=== PATIENT | female | born 1940 | race Caucasian/White ===

== ENCOUNTER → 2018-09-19 | Outpatient (CLI) | payer OTHER ==
--- NOTE | 2018-09-19 16:28 | KCIC ---
Bilateral digital screening mammograms with 3-D tomosynthesis: Reason for examination: Routine screening. Comparison is made to previous studies dated 11/05/2015 and 11/16/2014. Bilateral mammograms in CC and oblique projections were obtained with 2-D imaging and 3-D tomosynthesis imaging on a Siemens Inspiration unit and reviewed on the workstation. Interpretation was made with the benefit of CAD. The skin and nipples show no abnormalities. No abnormal axillary lymph nodes are seen. The breast parenchyma is heterogeneously dense. (Breast density: Category C.) There has been a decrease in size in the nodule at the 12:00 B position of the left breast. There continue to be multiple additional smaller nodules seen consistent with small cysts. There are no new dominant masses, suspicious calcifications or architectural distortion. Benign calcifications are present. Impression: No evidence of malignancy. Recommend routine screening. Your patient's mammogram demonstrates that she has dense breast tissue (breast density category C or D), which could hide abnormalities, and if she has other risk factors for breast cancer that have been identified, she might benefit from supplemental screening tests that may be suggested by you as her ordering physician. Dense breast tissue, in and of itself, is a relatively common condition. Therefore, this information is not provided to cause undue concern, but rather to raise your awareness and to promote discussion with your patient regarding the presence of other risk factors, in addition to dense breast tissue. Your patient's mammography results will be sent to her. BI-RAD Category 2: Benign. "Our facility is accredited by the [employer] Mammography Program." This patient's information has been entered into a reminder system for the patient to be notified with the results of her examination and a target date for the next mammogram. Electronically signed by: Tammi Faustin MD (09/19/2018 4:24 PM) [id number]
== END | disposition home or self-care (01) ==
LOC: KCIC MAMMO 14:39
PROVIDERS: ATTEND Internal Medicine
DX: Z12.31 Encounter for screening mammogram for malignant neoplasm of breast (principal)
CPT/HCPCS: 77063; 77067

== ENCOUNTER → 2019-12-21 | Outpatient (CLI) | payer MEDICARE ==
[2019-12-21 10:05] LABS: GFR 53.6
[2019-12-21] MEDS: IOHEXOL 240 MG/ML 50ML VIAL. PO ONE (10:56)
[2019-12-21] MEDS: IOHEXOL 300 MG/ML 100ML VIAL. IV ONE (10:56)
--- NOTE | 2019-12-21 11:57 | RAD ---
EXAM: CT Abdomen with IV contrast INDICATION: Ventral hernia TECHNIQUE: Multi-detector row CT images were acquired from the lung bases through the abdomen with the use of IV contrast. Sagittal and coronal images were acquired from the transaxial data. All CT scans performed at this facility utilize dose optimization techniques as appropriate to the exam, including the following: Automated exposure control and adjustment of the mA and/or KV according to patient size (this includes techniques or standardized protocols for targeted exams where dose is indication/reason for exam). IV CONTRAST: Administered ORAL CONTRAST: Administered COMPARISON: None FINDINGS: LOWER CHEST: Mild bibasilar atelectatic changes LIVER: Unremarkable BILIARY SYSTEM: Cholecystectomy. Bile ducts are not dilated. PANCREAS: Unremarkable SPLEEN: Unremarkable ADRENALS: 1 cm lateral limb right adrenal hypodense nodule compatible with an adenoma. Left adrenal gland is unremarkable. KIDNEYS & URETERS: Unremarkable GASTROINTESTINAL: There is mild wall thickening and pericolonic hyperemia involving the proximal ascending colon and the majority of the transverse colon. No evidence of bowel obstruction or perforation in the included field of view. The appendix is well-seen and may be absent. MESENTERY/PERITONEUM/RETROPERITONEUM: Unremarkable VASCULAR: Unremarkable LYMPH NODES: No adenopathy OSSEOUS & SOFT TISSUES: L3-L4 lumbar spinal degenerative spondylosis. No acute or aggressive osseous lesions. The soft tissues are unremarkable. IMPRESSION: Findings suggesting colitis of the ascending and transverse colon. No evidence of a ventral abdominal hernia in the included field of view. Electronically signed by: Sae Lee MD (12/21/2019 11:54 AM) [id number]
== END | disposition home or self-care (01) ==
LOC: CT 10:30
PROVIDERS: ATTEND Internal Medicine
DX: K43.9 Ventral hernia without obstruction or gangrene (principal); M47.816 Spondylosis without myelopathy or radiculopathy, lumbar region; Z90.49 Acquired absence of other specified parts of digestive tract
CPT/HCPCS: 36415; 74160; 82565; Q9966; Q9967

== ENCOUNTER 2020-09-21 16:33 | Inpatient (IN) | payer MEDICARE ==
[~2020-09-21] VITALS: Ht 154.9 cm; Wt 68.7 kg
[2020-09-21] MEDS ORDERED: IV NORMAL SALINE 1000ML BAG 1,000 ML IV ONE ×3 (17:00→19:30)
[2020-09-21 17:09] LABS: BASO # 0.1 x10^3/uL (0.0-0.2); BASO % 1 % (0-3); EOS # 0.1 x10^3/uL (0.0-0.7); EOS % 1 % (0-3); HEMATOCRIT 37.8 % (36.0-47.0); HEMOGLOBIN 12.4 g/dL (12.0-15.5); LYMPH # 0.8 x10^3/uL (1.0-4.8); LYMPH % 4 % (24-48); MEAN CORPUSCULAR HEMOGLOBIN 27 pg (25-35); MEAN CORPUSCULAR HGB CONC 33 g/dL (31-37); MEAN CORPUSCULAR VOLUME 83 fL (79-100); MONO # 0.2 x10^3/uL (0.0-1.1); MONO % 1 % (0-9); NEUT # 18.6 x10^3/uL (1.8-7.7); NEUT % 94 % (31-73); PLATELET COUNT 423 x10^3/uL (140-400); RED BLOOD COUNT 4.54 x10^6/uL (3.50-5.40); WHITE BLOOD COUNT 19.8 x10^3/uL (4.0-11.0)
[2020-09-21 17:33] LABS: % BANDS 8 % (0-9); % EOS 1 % (0-5); % LYMPHS 8 % (24-48); % MONOS 2 % (0-10); % SEGS 81 % (35-66); PLT ESTIMATE ADEQUATE (ADEQUATE)
[2020-09-21] MEDS ORDERED: PIP/TAZO PER PHARMACY MC PRN (18:00)
[2020-09-21] MEDS ORDERED: VANCOMYCIN PER PHARMACY MC PRN (18:00)
--- NOTE | 2020-09-21 18:10 | RAD ---
Exam performed: CT scan of the head and cervical spine without contrast. Date of Service: 09/20/2020 Comparison:None available Clinical History: Head injury Technique: Helical acquisitions are obtained from the foramen magnum to the vertex without intravenou s administration of contrast. In addition helical acquisitions are obtained through the cervical spin e. Sagittal and coronal reformatted images are obtained and reviewed. CT scan head findings: The ventricular system is midline without evidence of dilatation. There are mild areas of low-attenu ation in both periventricular and subcortical deep white matter perhaps representing small vessel isc hemic changes. Normal hernandez-white differentiation is maintained. There is no extra axial fluid collec tion, intraparenchymal hemorrhage or mass lesion. The visualized orbits, paranasal sinuses and the m astoid air cells are clear. The calvarium is intact. Impression: 1. No acute intracranial process detected. End Impression. CT cervical spine findings: Straightening of cervical curvature noted likely positional. Craniocervical and C1-2 articulation juan jose ears maintained. The vertebral body heights are maintained. There is narrowing of C5/6, C6/7 and C7/T 1 disc spaces, the remainder intravertebral disc spaces are maintained. Mild diffuse anterior osteoph ytes are seen in the lower cervical spine There is no elizabeth or retrolisthesis. No prevertebral soft tissue swelling is identified. There are no fractures. No definite lymphadenopathy or masses are s een within the neck. The visualized thyroid and salivary glands appears preserved. Impression: 1. No acute abnormality seen in the CT scan cervical spine. 2. Spondylotic changes and degenerative disc disease noted as outlined above. PQRS Compliance Statement: One or more of the following individualized dose reduction techniques were utilized for this examinat ion: 1. Automated exposure control 2. Adjustment of the mA and/or kV according to patient size 3. Use of iterative reconstruction technique End impression Exam performed: One view chest. Indication: Reason: HEAD INJURY / Spl. Instructions: / History: Date of Service: 09/21/2020 5:51 PM Comparison: None available. Single AP upright portable view chest findings: Study somewhat limited due to poor inspiratory effort Cardiomediastinal silhouette is within limits of normal. No acute infiltrates, effusion or pneumotho rax is detected. The bony structures are normal. Impression: No acute cardiopulmonary process is detected. Electronically signed by: Jessi Hurd MD (09/21/2020 6:08 PM) [facility]
[2020-09-21 18:16] LABS: CALCIUM 9.4 mg/dL (8.5-10.1); CREATININE 1.6 mg/dL (0.6-1.0); GFR 31.2; POTASSIUM 3.1 mmol/L (3.5-5.1)
[2020-09-21] MEDS ORDERED: VANCOMYCIN 1.5 GM in IV NORMAL SALINE 500ML BAG 500 ML IV ONE (18:30)
[2020-09-21 18:31] LABS: ALBUMIN 3.6 g/dL (3.4-5.0); MAGNESIUM 2.5 mg/dL (1.8-2.4); TOTAL BILIRUBIN 0.7 mg/dL (0.2-1.0); TOTAL PROTEIN 7.1 g/dL (6.4-8.2)
[2020-09-21] MEDS ORDERED: NOREPINEPHRINE VIAL 8 MG in IV DEXTROSE 5% 250 ML IV ONE (19:15)
--- NOTE | 2020-09-21 19:23 | PHYS DOC ---
Past Medical History Past Medical History: Hypertension, Other Additional Past Medical Histor: TREMORS Past Surgical History: Cholecystectomy, Hysterectomy Smoking Status: Never Smoker Alcohol Use: None General Adult EDM: Chief Complaint: MECHANICAL FALL HPI: HPI: 79-year-old female presented emergency department today after sustaining 2 falls today after feeling lightheaded. On EMS arrival the patient was hypotensive and tachycardic. She has been feeling generally bad for the past week or so with worsening fatigue and lightheadedness over the past 48 hours. She has had some what she reports is constipation which is generally abdominal pain without a focus. She has not had any fevers. She has had some nausea. She reports passing gas today and reports recently had a bowel movement in the last 24 hours. She denies a cough. She denies any rash. Review of systems is negative for chest pain shortness of breath cough. Negative for rash nuchal rigidity. Positive for fatigue lightheadedness. All other review of systems negative. ED course: 79-year-old female presenting with a fall lightheaded found to be hypotensive and tachycardic. IV fluids administered in the emergency de partment. Her blood pressure came up quite quickly to about 110 systolic. IV antibiotics ordered. CBC shows an elevated white blood cell count of 19.8. Hemoglobin 12.4. Chemistry panel shows a creatinine of 1.6. Potassium 3.1. Troponin mildly elevated at 0.07. Lactic acid 4.6. Magnesium 2.5. Concern for possible sepsis. Broad-spectrum antibiotics have been administered along with IV fluids. Head and neck CT negative. Chest x-ray shows no acute cardiothoracic process. Currently we are pending a CT of the abdomen pelvis and urinalysis which may reveal the source of infection. The patient was signed out to Dr. Garibay the oncoming ER doctor at approximately 7 PM. Plan is to follow- up on imaging and admit the patient to the intensive care unit. On my examination at about 715 the patient's blood pressure was a map in the 90s. She is alert and nontoxic during that examination without any changes. I did spoken to Dr. Zhong who evaluated the patient in the emergency department. He is working on getting us a bed in the hospital. We will hold off on bridge orders and getting the bed until all the labs and imaging is back. The patient was then signed out to Dr. Garibay. Heart Score: Risk Factors: Risk Factors: DM, Current or recent (<one month) smoker, HTN, HLP, family history of CAD, obesity. Risk Scores: Score 0 - 3: 2.5% MACE over next 6 weeks - Discharge Home Score 4 - 6: 20.3% MACE over next 6 weeks - Admit for Clinical Observation Score 7 - 10: 72.7% MACE over next 6 weeks - Early Invasive Strategies Current Medications: Current Medications Medications (Trade) Dose Ordered Sig/Daisy Start Time Stop Time Status Last Admin Dose Admin Norepinephrine Bitartrate 8 mg/ Dextrose 258 ml @ 12.191 mls/ hr 1X ONCE 09/21/20 19:15 09/22/20 16:24 Piperacillin Sod/ Tazobactam Sod (Zosyn Per Pharmacy) 1 each PRN DAILY PRN 09/21/20 18:00 Piperacillin Sod/ Tazobactam Sod 3.375 gm/Sodium Chloride 50 ml @ 100 mls/hr Q6HRS 09/21/20 18:00 Sodium Chloride 1,000 ml @ 1,000 mls/hr 1X ONCE 09/21/20 19:15 09/21/20 20:14 UNV Vancomycin HCl (Vanco Per Pharmacy) 1 each PRN DAILY PRN 09/21/20 18:00 Vancomycin HCl 1.5 gm/Sodium Chloride 500 ml @ 250 mls/hr 1X ONCE 09/21/20 18:30 09/21/20 20:29 Allergies: Allergies: Allergies Coded Allergies Type Severity Reaction Last Updated Verified No Known Drug Allergies 12/21/19 No Physical Exam: PE: Constitutional: Well developed, well nourished, no acute distress, non-toxic appearance. [] HENT: Normocephalic, atraumatic, bilateral external ears normal, oropharynx moist, no oral exudates, nose normal. [] Eyes: PERRLA, EOMI, conjunctiva normal, no discharge. [] Neck: Normal range of motion, no tenderness, supple, no stridor. [] Cardiovascular:Heart rate regular rhythm, no murmur [] Lungs & Thorax: Bilateral breath sounds clear to auscultation [] Abdomen: Bowel sounds normal, soft, no tenderness, no masses, no pulsatile masses. [] Skin: Warm, dry, no erythema, no rash. [] Back: No tenderness, no CVA tenderness. [] Extremities: No tenderness, no cyanosis, no clubbing, ROM intact, no edema. [] Neurologic: Alert and oriented X 3, normal motor function, normal sensory function, no focal deficits noted. [] Psychologic: Affect normal, judgement normal, mood normal. [] Current Patient Data: Labs: Laboratory Tests Test 09/21/20 16:47 09/21/20 17:59 White Blood Count 19.8 x10^3/uL (4.0-11.0) H Red Blood Count 4.54 x10^6/uL (3.50-5.40) Hemoglobin 12.4 g/dL (12.0-15.5) Hematocrit 37.8 % (36.0-47.0) Mean Corpuscular Volume 83 fL (79-100) Mean Corpuscular Hemoglobin 27 pg (25-35) Mean Corpuscular Hemoglobin Concent 33 g/dL (31-37) Red Cell Distribution Width 14.0 % (11.5-14.5) Platelet Count 423 x10^3/uL (140-400) H Neutrophils (%) (Auto) 94 % (31-73) H Lymphocytes (%) (Auto) 4 % (24-48) L Monocytes (%) (Auto) 1 % (0-9) Eosinophils (%) (Auto) 1 % (0-3) Basophils (%) (Auto) 1 % (0-3) Neutrophils # (Auto) 18.6 x10^3/uL (1.8-7.7) H Lymphocytes # (Auto) 0.8 x10^3/uL (1.0-4.8) L Monocytes # (Auto) 0.2 x10^3/uL (0.0-1.1) Eosinophils # (Auto) 0.1 x10^3/uL (0.0-0.7) Basophils # (Auto) 0.1 x10^3/uL (0.0-0.2) Segmented Neutrophils % 81 % (35-66) H Band Neutrophils % 8 % (0-9) Lymphocytes % 8 % (24-48) L Monocytes % 2 % (0-10) Eosinophils % 1 % (0-5) Platelet Estimate Adequate (ADEQUATE) Lactic Acid Level 4.6 mmol/L (0.4-2.0) *H Troponin I Quantitative 0.077 ng/mL (0.000-0.055) Sodium Level 138 mmol/L (136-145) Potassium Level 3.1 mmol/L (3.5-5.1) L Chloride Level 103 mmol/L (98-107) Carbon Dioxide Level 20 mmol/L (21-32) L Anion Gap 15 (6-14) H Blood Urea Nitrogen 15 mg/dL (7-20) Creatinine 1.6 mg/dL (0.6-1.0) H Estimated GFR (Cockcroft-Gault) 31.2 BUN/Creatinine Ratio 9 (6-20) Glucose Level 141 mg/dL (70-99) H Calcium Level 9.4 mg/dL (8.5-10.1) Magnesium Level 2.5 mg/dL (1.8-2.4) H Total Bilirubin 0.7 mg/dL (0.2-1.0) Aspartate Amino Transferase (AST) 23 U/L (15-37) Alanine Aminotransferase (ALT) 20 U/L (14-59) Alkaline Phosphatase 234 U/L (46-116) H KU-Ron-X-Type Natriuretic Peptide 185 pg/mL (0-449) Total Protein 7.1 g/dL (6.4-8.2) Albumin 3.6 g/dL (3.4-5.0) Albumin/Globulin Ratio 1.0 (1.0-1.7) Laboratory Tests 09/21/20 16:47 Laboratory Tests 09/21/20 17:59 Vital Signs: Vital Signs Date Time Temp Pulse Resp B/P (MAP) Pulse Ox O2 Delivery O2 Flow Rate FiO2 09/21/20 17:02 98.6 112 18 117/61 (79) 98 Room Air 98.6 EKG: EKG: [] Radiology/Procedures: Radiology/Procedures: [] Course & Med Decision Making: Course & Med Decision Making Pertinent Labs and Imaging studies reviewed. (See chart for details) [] Dragon Disclaimer: Sharonda Disclaimer: This electronic medical record was generated, in whole or in part, using a voice recognition dictation system. Departure Departure Impression: Primary Impression: Syncope Additional Impressions: Severe sepsis Hypovolemia Elevated white blood cell count Disposition: ADMITTED INPT THIS HOSP Admitting Physician: HIMS Condition: CRITICAL Referrals: JARED LEBLANC MD (PCP) Critical Care Time Critical care time spent was 45 minutes exclusive of procedures. Time was spent evaluating the patient, ordering the administration of medications, reevaluating the patient, discussing with the admitting provider and documenting. DELVIN BAÑUELOS MD Sep 21, 2020 19:23
[2020-09-21] MEDS: PIPERACILLIN/TAZOBACTAM 3.375 GM in IV NORMAL SALINE 50ML 50 ML IV SCH (19:33)
--- NOTE | 2020-09-21 20:49 | RAD ---
Exam: CT of abdomen and pelvis without contrast INDICATION: Abdominal pain TECHNIQUE: Sequential axial images through the abdomen and pelvis obtained without IV contrast. Sagit robin and coronal reformatted images were reconstructed from the axial data and reviewed. Comparisons: None FINDINGS: Heart size is normal. No pericardial effusion visualized. There is a partially visualized small left pneumothorax. No pleural effusion. Evaluation of solid organs is limited secondary to noncontrast technique. Liver, spleen, pancreas, and adrenals are unremarkable. Gallbladder surgically absent. No perinephric inflammation or hydronephrosis. No renal or ureteral calculi are identified. Bladder is decompressed not well evaluated. Uterus is not enlarged. No abnormal adnexal mass. There is diffuse wall thickening involving the descending colon with adjacent fat stranding. Remainde r of the large and small bowel are unremarkable. No obstruction. There is a small amount of free flui d. No free air. Abdominal aorta has a normal course and caliber. No enlarged intra-abdominal lymph nodes are identified. No suspicious osseous lesions or acute fractures. IMPRESSION: 1. Small left basilar pneumothorax. 2. Diffuse wall thickening at the descending colon favored represent colitis may be infectious or in flammatory in etiology. No adjacent abscess or evidence for perforation. Exposure: One or more of the following in the visualized dose reduction techniques were utilized for this examination: 1. Automated exposure control 2. Adjustment of the MA and/or KV according to patient size 3. Use of iterative of reconstructive technique FOR INTERNAL CODING PURPOSES Critical result: Findings discussed with [place] at 09/21/2020 8:42 PM. RESULT CODE: (C) Electronically signed by: Sugar Lucia MD (09/21/2020 8:46 PM) [facility]
--- NOTE | 2020-09-21 21:11 | NUR ---
Pharmacy Vancomycin Dosing Note S: Consulted to monitor and dose vancomycin started 09/21/20. O: CHEN JESUS is a 79 year old F Empiric treatment Other Antibiotics: ZOSYN LABS: Last BUN: 15 Last Creatinine: 1.6 Creatinine Clearance: 30 mL/min Last WBC: 19.8 Tmax (past 24 hours): AFEBRILE Vancomycin Dosing: Dosing Weight: Actual Target Trough: 10-20 A: Based on: VANCO dosing guidelines P: 1. Begin Vancomycin 1500mg LOAD dose, then 1000 mg IV q24h 2. Follow up Trough level on 09/23/20 at 2030 3. Pharmacy will continue to monitor, follow and adjust therapy as needed. BART ORTEGA [facility], 09/21/20 [id number]
[2020-09-21] MEDS: POTASSIUM CHLORIDE 20MEQ 100 ML IV SCH (22:29)
--- NOTE | 2020-09-21 22:58 | PDOC1 ---
History and Physical Date of Admission Date of Admission DATE: 09/21/20 TIME: 22:47 Identification/Chief Complaint Chief Complaint Fall, lightheadedness Source Source: Caregiver, Patient History of Present Illness History of Present Illness Patient is a 79 yo female who presents to the ED for evaluation of after a fall at home today x 2. Per patient's daught, she has had worsening symptoms of intermittent dizziness and lightheadedness since 09/05/20. She has been evaluated by her PCP, including COVID-19 testing that was reportedly negative, with negative work-up except some anemia. She does admit to some associated c onstipation and intermittent generalized abdominal pain over tis time. States her last bowel movement was yesterday, and passing flatus today. She began vomiting today with associated tremors prior to her fall, which prompted her daughter to contact EMS. Upon arrival in the ED, she was tachycardic and became hypotensive. WBC 19.8, Lactic Acid 4.6, Troponin 0.077, Cr 1.6. Do to concern for sepsis, she was given broad spectrum antibiotics and sepsis fluid bolus. Her blood pressure did not respond initially to fluids, so she was placed on Levophed infusion. Will admit patient for further medical management. Past Medical History Past Medical History Depression, Tardive Dyskinesia Past Surgical History Past Surgical History: Cholecystectomy, Hysterectomy Family History Family History: Cancer Social History Smoke: No ALCOHOL: none Drugs: None Current Problem List Problem List Problems Medical Problems: (1) Elevated white blood cell count Status: Acute (2) Hypovolemia Status: Acute (3) Severe sepsis Status: Acute (4) Syncope Status: Acute Current Medications Current Medications Current Medications Sodium Chloride 1,000 ml @ 1,000 mls/hr 1X ONCE IV Last administered on 09/21/20at 17:59; Start 09/21/20 at 17:00; Stop 09/21/20 at 17:59; Status DC Vancomycin HCl (Vanco Per Pharmacy) 1 each PRN DAILY PRN MC SEE COMMENTS Last administered on 09/21/20at 21:08; Start 09/21/20 at 18:00 Piperacillin Sod/ Tazobactam Sod (Zosyn Per Pharmacy) 1 each PRN DAILY PRN MC SEE COMMENTS; Start 09/21/20 at 18:00 Piperacillin Sod/ Tazobactam Sod 3.375 gm/Sodium Chloride 50 ml @ 100 mls/hr Q6HRS IV Last administered on 09/21/20at 19:33; Start 09/21/20 at 18:00 Vancomycin HCl 1.5 gm/Sodium Chloride 500 ml @ 250 mls/hr 1X ONCE IV Last administered on 09/21/20at 20:56; Start 09/21/20 at 18:30; Stop 09/21/20 at 20:29; Status DC Sodium Chloride 1,000 ml @ 1,000 mls/hr 1X ONCE IV Last administered on 09/21/20at 19:34; Start 09/21/20 at 18:00; Stop 09/21/20 at 18:59; Status DC Norepinephrine Bitartrate 8 mg/ Dextrose 258 ml @ 12.191 mls/ hr 1X ONCE IV ; Start 09/21/20 at 19:15; Stop 09/22/20 at 16:24 Sodium Chloride 1,000 ml @ 1,000 mls/hr 1X ONCE IV Last administered on 09/21/20at 20:58; Start 09/21/20 at 19:30; Stop 09/21/20 at 20:29; Status DC Vancomycin HCl 1 gm/Sodium Chloride 250 ml @ 250 mls/hr Q24H IV ; Start 1 at 21:00 Vancomycin HCl (Vancomycin Trough Level) 1 each 1X ONCE MC ; Start 09/23/20 at 20:30; Stop 09/23/20 at 20:31 Potassium Chloride/Water 100 ml @ 100 mls/hr Q1H IV Last administered on 09/21/20at 22:29; Start 09/21/20 at 22:00; Stop 09/21/20 at 23:59 Allergies Allergies: Coded Allergies: No Known Drug Allergies (Unverified , 12/21/19) ROS Review of System GENERAL: Fall, lightheadedness, tremors. No history of weight change, or fevers. SKIN: No bruising, hair changes or rashes. EYES: No blurred, double or loss of vision. NOSE AND THROAT: No history of nosebleeds, hoarseness or sore throat. HEART: Denies chest pain, denies palpitations. LUNGS: Denies cough, hemoptysis, wheezing or shortness of breath. GASTROINTESTINAL: Nausea, vomiting. Constipation. Denies abdominal pain. GENITOURINARY: Denies dysuria, frequency, urgency, hematuria. NEUROLOGIC: Denies history of numbness, tingling, tremor or weakness. PSYCHIATRIC: Denies anxiety, denies depression. ENDOCRINE: No history of heat or cold intolerance, polyuria or polydipsia. EXTREMITIES: Denies muscle weakness, joint pain, pain on walking or stiffness. Physical Exam Physical Exam General: Alert, Cooperative, Mild distress. HEENT: PERRLA, EOMI Lungs: Clear to auscultation, Normal air movement Heart: Tachycardic. No murmurs Cardiovascular: S1, S2 Abdomen: Normal bowel sounds, Soft, No tenderness Extremities: No clubbing, No cyanosis Skin: No rashes, No significant lesion Neuro: Normal speech, Normal tone, Sensation intact Psych/Mental Status: Mental status NL, Mood NL Vitals Vitals Vital Signs Date Time Temp Pulse Resp B/P (MAP) Pulse Ox O2 Delivery O2 Flow Rate FiO2 09/21/20 20:53 91 18 98 09/21/20 17:02 98.6 117/61 (79) Room Air 98.6 Labs Labs Laboratory Tests Test 09/21/20 16:47 09/21/20 17:59 White Blood Count 19.8 x10^3/uL (4.0-11.0) Red Blood Count 4.54 x10^6/uL (3.50-5.40) Hemoglobin 12.4 g/dL (12.0-15.5) Hematocrit 37.8 % (36.0-47.0) Mean Corpuscular Volume 83 fL (79-100) Mean Corpuscular Hemoglobin 27 pg (25-35) Mean Corpuscular Hemoglobin Concent 33 g/dL (31-37) Red Cell Distribution Width 14.0 % (11.5-14.5) Platelet Count 423 x10^3/uL (140-400) Neutrophils (%) (Auto) 94 % (31-73) Lymphocytes (%) (Auto) 4 % (24-48) Monocytes (%) (Auto) 1 % (0-9) Eosinophils (%) (Auto) 1 % (0-3) Basophils (%) (Auto) 1 % (0-3) Neutrophils # (Auto) 18.6 x10^3/uL (1.8-7.7) Lymphocytes # (Auto) 0.8 x10^3/uL (1.0-4.8) Monocytes # (Auto) 0.2 x10^3/uL (0.0-1.1) Eosinophils # (Auto) 0.1 x10^3/uL (0.0-0.7) Basophils # (Auto) 0.1 x10^3/uL (0.0-0.2) Segmented Neutrophils % 81 % (35-66) Band Neutrophils % 8 % (0-9) Lymphocytes % 8 % (24-48) Monocytes % 2 % (0-10) Eosinophils % 1 % (0-5) Platelet Estimate Adequate (ADEQUATE) Lactic Acid Level 4.6 mmol/L (0.4-2.0) Troponin I Quantitative 0.077 ng/mL (0.000-0.055) Sodium Level 138 mmol/L (136-145) Potassium Level 3.1 mmol/L (3.5-5.1) Chloride Level 103 mmol/L (98-107) Carbon Dioxide Level 20 mmol/L (21-32) Anion Gap 15 (6-14) Blood Urea Nitrogen 15 mg/dL (7-20) Creatinine 1.6 mg/dL (0.6-1.0) Estimated GFR (Cockcroft-Gault) 31.2 BUN/Creatinine Ratio 9 (6-20) Glucose Level 141 mg/dL (70-99) Calcium Level 9.4 mg/dL (8.5-10.1) Magnesium Level 2.5 mg/dL (1.8-2.4) Total Bilirubin 0.7 mg/dL (0.2-1.0) Aspartate Amino Transf (AST/SGOT) 23 U/L (15-37) Alanine Aminotransferase (ALT/SGPT) 20 U/L (14-59) Alkaline Phosphatase 234 U/L (46-116) VB-Jbi-Z-Type Natriuretic Peptide 185 pg/mL (0-449) Total Protein 7.1 g/dL (6.4-8.2) Albumin 3.6 g/dL (3.4-5.0) Albumin/Globulin Ratio 1.0 (1.0-1.7) Laboratory Tests Test 09/21/20 16:47 09/21/20 17:59 White Blood Count 19.8 x10^3/uL (4.0-11.0) Red Blood Count 4.54 x10^6/uL (3.50-5.40) Hemoglobin 12.4 g/dL (12.0-15.5) Hematocrit 37.8 % (36.0-47.0) Mean Corpuscular Volume 83 fL (79-100) Mean Corpuscular Hemoglobin 27 pg (25-35) Mean Corpuscular Hemoglobin Concent 33 g/dL (31-37) Red Cell Distribution Width 14.0 % (11.5-14.5) Platelet Count 423 x10^3/uL (140-400) Neutrophils (%) (Auto) 94 % (31-73) Lymphocytes (%) (Auto) 4 % (24-48) Monocytes (%) (Auto) 1 % (0-9) Eosinophils (%) (Auto) 1 % (0-3) Basophils (%) (Auto) 1 % (0-3) Neutrophils # (Auto) 18.6 x10^3/uL (1.8-7.7) Lymphocytes # (Auto) 0.8 x10^3/uL (1.0-4.8) Monocytes # (Auto) 0.2 x10^3/uL (0.0-1.1) Eosinophils # (Auto) 0.1 x10^3/uL (0.0-0.7) Basophils # (Auto) 0.1 x10^3/uL (0.0-0.2) Segmented Neutrophils % 81 % (35-66) Band Neutrophils % 8 % (0-9) Lymphocytes % 8 % (24-48) Monocytes % 2 % (0-10) Eosinophils % 1 % (0-5) Platelet Estimate Adequate (ADEQUATE) Lactic Acid Level 4.6 mmol/L (0.4-2.0) Troponin I Quantitative 0.077 ng/mL (0.000-0.055) Sodium Level 138 mmol/L (136-145) Potassium Level 3.1 mmol/L (3.5-5.1) Chloride Level 103 mmol/L (98-107) Carbon Dioxide Level 20 mmol/L (21-32) Anion Gap 15 (6-14) Blood Urea Nitrogen 15 mg/dL (7-20) Creatinine 1.6 mg/dL (0.6-1.0) Estimated GFR (Cockcroft-Gault) 31.2 BUN/Creatinine Ratio 9 (6-20) Glucose Level 141 mg/dL (70-99) Calcium Level 9.4 mg/dL (8.5-10.1) Magnesium Level 2.5 mg/dL (1.8-2.4) Total Bilirubin 0.7 mg/dL (0.2-1.0) Aspartate Amino Transf (AST/SGOT) 23 U/L (15-37) Alanine Aminotransferase (ALT/SGPT) 20 U/L (14-59) Alkaline Phosphatase 234 U/L (46-116) FP-Rnx-H-Type Natriuretic Peptide 185 pg/mL (0-449) Total Protein 7.1 g/dL (6.4-8.2) Albumin 3.6 g/dL (3.4-5.0) Albumin/Globulin Ratio 1.0 (1.0-1.7) Images Images Exam performed: CT scan of the head and cervical spine without contrast. Date of Service: 09/20/2020 Comparison:None available Clinical History: Head injury Technique: Helical acquisitions are obtained from the foramen magnum to the vertex without intravenous administration of contrast. In addition helical acquisitions are obtained through the cervical spine. Sagittal and coronal reformatted images are obtained and reviewed. CT scan head findings: The ventricular system is midline without evidence of dilatation. There are mild areas of low-attenuation in both periventricular and subcortical deep white matter perhaps representing small vessel ischemic changes. Normal hernandez-white differentiation is maintained. There is no extra axial fluid collection, intraparenchymal hemorrhage or mass lesion. The visualized orbits, paranasal sinuses and the mastoid air cells are clear. The calvarium is intact. Impression: 1. No acute intracranial process detected. End Impression. CT cervical spine findings: Straightening of cervical curvature noted likely positional. Craniocervical and C1-2 articulation appears maintained. The vertebral body heights are maintained. There is narrowing of C5/6, C6/7 and C7/T1 disc spaces, the remainder intravertebral disc spaces are maintained. Mild diffuse anterior osteophytes are seen in the lower cervical spine There is no elizabeth or retrolisthesis. No prevertebral soft tissue swelling is identified. There are no fractures. No definite lymphadenopathy or masses are seen within the neck. The visualized thyroid and salivary glands appears preserved. Impression: 1. No acute abnormality seen in the CT scan cervical spine. 2. Spondylotic changes and degenerative disc disease noted as outlined above. PQRS Compliance Statement: One or more of the following individualized dose reduction techniques were utilized for this examination: 1. Automated exposure control 2. Adjustment of the mA and/or kV according to patient size 3. Use of iterative reconstruction technique End impression Exam performed: One view chest. Indication: Reason: HEAD INJURY / Spl. Instructions: / History: Date of Service: 09/21/2020 5:51 PM Comparison: None available. Single AP upright portable view chest findings: Study somewhat limited due to poor inspiratory effort Cardiomediastinal silhouette is within limits of normal. No acute infiltrates, effusion or pneumothorax is detected. The bony structures are normal. Impression: No acute cardiopulmonary process is detected. VTE Prophylaxis Ordered VTE Prophylaxis Devices: No VTE Pharmacological Prophylaxi: Yes Assessment/Plan Assessment/Plan Sepsis Leukocytosis Lactic acidosis Hypokalemia Elevated troponins Plan: Sepsis of unclear etiology Chest x-ray clear Patient placed on Levophed after minimal improvement in blood pressure with sepsis fluid bolus Consult ID to help identify source of infection Continue Vanc and Zosyn Initial troponin slightly elevated. Will trend. UA pending; blood cultures pending FEN - regular diet PPX - Heparin FULL CODE Dispo - inpatient for above Justifications for Admission Other Justification CHASITY CATES MD Sep 21, 2020 22:58
[2020-09-21 23:30] VITALS: BP 140/62
[2020-09-22] MEDS: ACETAMINOPHEN 325 MG TABLET. PO PRN ×3 (00:18→20:52)
[2020-09-22] MEDS: PIPERACILLIN/TAZOBACTAM 3.375 GM in IV NORMAL SALINE 50ML 50 ML IV SCH ×5 (00:47→23:18)
[2020-09-22] MEDS ORDERED: CALCIUM CARBONATE 500 MG TAB.CHEW PO PRN (01:00)
[2020-09-22] MEDS ORDERED: ONDANSETRON PF 4 MG/2 ML VIAL. IVP PRN (01:00)
[2020-09-22] MEDS ORDERED: MAG HYDROX/ALUMINUM HYD/SIMETH 30 ML ORAL.SUSP PO PRN (01:00)
[2020-09-22] MEDS ORDERED: BISACODYL 10 MG SUPP.RECT. PR PRN (01:00)
[2020-09-22] MEDS ORDERED: MAGNESIUM HYDROXIDE 2,400 MG/30 ML ORAL.SUSP. PO PRN (01:00)
[2020-09-22 01:04] LABS: BILIRUBIN,URINE SMALL (NEG); CLARITY,URINE CLEAR; COLOR,URINE AMBER; NITRITE,URINE NEGATIVE (NEG); PROTEIN,URINE NEGATIVE (NEG-TRACE)
[2020-09-22 01:21] LABS: BACTERIA,URINE 0 /HPF (0-FEW); HYALINE CASTS, URINE FEW /HPF; RBC,URINE OCC /HPF (0-2); WBC,URINE OCC /HPF (0-4)
[2020-09-22] MEDS: POTASSIUM CHLORIDE 20MEQ 100 ML IV SCH (02:00)
[2020-09-22 02:05] VITALS: BP 128/55
[2020-09-22 07:00] VITALS: BP 110/47
[2020-09-22 08:00] LABS: BASO % 0 % (0-3); EOS % 0 % (0-3); HEMATOCRIT 31.9 % (36.0-47.0); HEMOGLOBIN 10.6 g/dL (12.0-15.5); LYMPH # 0.7 x10^3/uL (1.0-4.8); LYMPH % 4 % (24-48); MEAN CORPUSCULAR HEMOGLOBIN 27 pg (25-35); MEAN CORPUSCULAR HGB CONC 33 g/dL (31-37); MEAN CORPUSCULAR VOLUME 82 fL (79-100); MONO # 1.2 x10^3/uL (0.0-1.1); MONO % 7 % (0-9); NEUT # 16.4 x10^3/uL (1.8-7.7); NEUT % 90 % (31-73); PLATELET COUNT 313 x10^3/uL (140-400); RED BLOOD COUNT 3.89 x10^6/uL (3.50-5.40); WHITE BLOOD COUNT 18.3 x10^3/uL (4.0-11.0)
[2020-09-22] MEDS: HEPARIN for SUB-Q USE 5,000 UNIT/ML VIAL. SQ SCH ×2 (08:16→20:52)
[2020-09-22 09:16] LABS: CALCIUM 7.7 mg/dL (8.5-10.1); CREATININE 1.3 mg/dL (0.6-1.0); GFR 39.6; POTASSIUM 4.4 mmol/L (3.5-5.1)
--- NOTE | 2020-09-22 10:31 | CONS ---
DATE OF CONSULTATION: 09/22/2020 REFERRING PHYSICIAN: Dr. Zhong. REASON FOR CONSULTATION: Sepsis. HISTORY OF PRESENT ILLNESS: A 79-year-old female with history of Parkinson's and tardive dyskinesia, alternating diarrhea and constipation, who presented to the ER after sustaining 2 falls after feeling lightheadedness at home. The patient was in her normal state. Daughter at bedside to give full history. The patient had a cup of coffee, did her normal walking exercise and then suddenly started feeling dizzy and fell backwards and hit her head. Upon arrival in the ER, she was hypertensive, tachycardic. She required fluid bolus. White count was elevated at 19,000. Lactate of 4.6. UA was clear. Creatinine was 1.6, potassium of 3.1. Head and neck CT was negative. Chest x-ray showed no acute cardiothoracic process. CT abdomen and pelvis showed colitis. The patient also had nausea and vomiting prior to admission. She had some abdominal pain. Denies any dysuria or rash. The patient underwent extensive evaluation by her primary care physician including routine lab testing UA, COVID test, which was reported negative. Antigo was reported to be a little low as per daughter at bedside. The patient required Levophed also was started on IV vancomycin and Zosyn. ID consultation has been requested for antibiotic management. PAST MEDICAL HISTORY: Tardive dyskinesia, Parkinson's disease. PAST SURGICAL HISTORY: Cholecystectomy and hysterectomy. SOCIAL HISTORY: Denies smoking, ETOH, or illicit drug use. Lives with daughter who is at bedside currently. CURRENT MEDICATION: IV vancomycin and Zosyn. Other medications reviewed in medication list. ALLERGIES: No known drug allergies. REVIEW OF SYSTEMS: Negative except for above in HPI. PHYSICAL EXAMINATION: VITAL SIGNS: Temperature 99.6, pulse 88, respiratory rate 16, blood pressure 110/47, oxygen saturation 95% on room air. GENERAL: Alert, oriented x 3 female, slow in answering questions, in no acute distress. HEENT: Normocephalic, atraumatic, anicteric. Oral mucosa moist. NECK: Supple, no JVD, no lymphadenopathy. LUNGS: Clear bilaterally. No wheezing. No accessory muscle use. HEART: S1, S2, no murmurs. ABDOMEN: Soft, mild tenderness in the suprapubic area. No rebound, no guarding. Bowel sounds present. EXTREMITIES: No edema, no cyanosis. DERMATOLOGIC: Warm and dry. No generalized rash. CENTRAL NERVOUS SYSTEM: Alert and oriented x 3, grossly nonfocal, little slow in answering questions. PSYCHIATRIC: Flat affect, otherwise cooperative. LABORATORY DATA: WBC 18.3, was 19.8, hemoglobin 10.6, was 12.4, hematocrit 31.9, platelets 313. Sodium 138, potassium 3.1, chloride 103, bicarbonate 20, BUN 15, creatinine 1.6, glucose 141. Lactate 2.2, was 4.6. Troponin 0.77. LFTs normal except for alkaline phosphatase 234. Troponin 0.116, repeat is 0.052. LFTs normal. UA, small bilirubin, otherwise negative. IMAGING: Chest x-ray shows no acute abnormality. DJD changes. Head and cervical CT, no acute changes. DJD changes. Abdominal and pelvic CT shows small left basilar pneumothorax, diffuse wall thickening of the descending colon favoring representing colitis, maybe infectious or inflammatory in etiology, but just an abscess or evidence of perforation. IMPRESSION: 1. Leukocytosis. 2. Sepsis, source unclear. 3. Lactic acidosis. 4. Acute kidney injury. 5. Small left pneumothorax. 6. Colitis on CT with constipation, nausea and vomiting with alternating bowel movements. 7. History of fall. CT head and neck negative. 8. Parkinson's with tardive dyskinesia. 9. Increased troponin. 10. Hypokalemia. RECOMMENDATIONS: 1. Discontinue IV vancomycin due to KEVON. 2. Start Zyvox and continue Zosyn. 3. Follow up labs and cultures. 4. Continue supportive care. 5. Discussed with daughter at bedside. Thank you for allowing me to participate in this patient's care. If you have any questions, do not hesitate to contact me. NEHAL CORONA MD DR: LAVELL/karen JOB#: [id number] / [id number]
[2020-09-22 11:00] VITALS: BP 124/52
[2020-09-22] MEDS ORDERED: GABA-689 PO (13:47)
[2020-09-22] MEDS ORDERED: RISP0.5T62 PO (13:47)
[2020-09-22] MEDS ORDERED: OXYB5TAB10 PO (13:47)
[2020-09-22] MEDS ORDERED: PARO40TA3 PO (13:47)
[2020-09-22] MEDS ORDERED: LISI20TA18 PO (13:47)
[2020-09-22] MEDS ORDERED: LITH300C PO (13:47)
--- NOTE | 2020-09-22 14:38 | PDOC ---
PROGRESS NOTES Date of Service: DATE: 09/22/20 TIME: 14:34 Chief Complaint Chief Complaint Sepsis, NOS, severe sepsis on admit, with lactic acidosis Hypokalemia Elevated troponins, demand 2 parkinsons disease, chronic weakness acute metabolic acidosis, start bicarb, lactate almost normal yesterday History of Present Illness History of Present Illness 09/22 Chest x-ray clear on broad abx vitals better, was given levaphed yesterday OOB to chair, daughter here today ID following, changed abx, renal fxn Vitals Vitals Vital Signs Date Time Temp Pulse Resp B/P (MAP) Pulse Ox O2 Delivery O2 Flow Rate FiO2 09/22/20 11:00 100.1 108 16 124/52 (76) 96 Room Air 100.1 Physical Exam General: Alert, Oriented X3, Cooperative, No acute distress Heart: Regular rate, Normal S2 Lungs: Clear Abdomen: Normal bowel sounds Extremities: No cyanosis Skin: No rashes Labs LABS Laboratory Tests Test 09/21/20 16:47 09/21/20 17:59 09/22/20 00:45 09/22/20 00:55 White Blood Count 19.8 x10^3/uL (4.0-11.0) Red Blood Count 4.54 x10^6/uL (3.50-5.40) Hemoglobin 12.4 g/dL (12.0-15.5) Hematocrit 37.8 % (36.0-47.0) Mean Corpuscular Volume 83 fL (79-100) Mean Corpuscular Hemoglobin 27 pg (25-35) Mean Corpuscular Hemoglobin Concent 33 g/dL (31-37) Red Cell Distribution Width 14.0 % (11.5-14.5) Platelet Count 423 x10^3/uL (140-400) Neutrophils (%) (Auto) 94 % (31-73) Lymphocytes (%) (Auto) 4 % (24-48) Monocytes (%) (Auto) 1 % (0-9) Eosinophils (%) (Auto) 1 % (0-3) Basophils (%) (Auto) 1 % (0-3) Neutrophils # (Auto) 18.6 x10^3/uL (1.8-7.7) Lymphocytes # (Auto) 0.8 x10^3/uL (1.0-4.8) Monocytes # (Auto) 0.2 x10^3/uL (0.0-1.1) Eosinophils # (Auto) 0.1 x10^3/uL (0.0-0.7) Basophils # (Auto) 0.1 x10^3/uL (0.0-0.2) Segmented Neutrophils % 81 % (35-66) Band Neutrophils % 8 % (0-9) Lymphocytes % 8 % (24-48) Monocytes % 2 % (0-10) Eosinophils % 1 % (0-5) Platelet Estimate Adequate (ADEQUATE) Lactic Acid Level 4.6 mmol/L (0.4-2.0) 2.2 mmol/L (0.4-2.0) Troponin I Quantitative 0.077 ng/mL (0.000-0.055) 0.116 ng/mL (0.000-0.055) Sodium Level 138 mmol/L (136-145) Potassium Level 3.1 mmol/L (3.5-5.1) Chloride Level 103 mmol/L (98-107) Carbon Dioxide Level 20 mmol/L (21-32) Anion Gap 15 (6-14) Blood Urea Nitrogen 15 mg/dL (7-20) Creatinine 1.6 mg/dL (0.6-1.0) Estimated GFR (Cockcroft-Gault) 31.2 BUN/Creatinine Ratio 9 (6-20) Glucose Level 141 mg/dL (70-99) Calcium Level 9.4 mg/dL (8.5-10.1) Magnesium Level 2.5 mg/dL (1.8-2.4) Total Bilirubin 0.7 mg/dL (0.2-1.0) Aspartate Amino Transf (AST/SGOT) 23 U/L (15-37) Alanine Aminotransferase (ALT/SGPT) 20 U/L (14-59) Alkaline Phosphatase 234 U/L (46-116) SB-Oux-N-Type Natriuretic Peptide 185 pg/mL (0-449) Total Protein 7.1 g/dL (6.4-8.2) Albumin 3.6 g/dL (3.4-5.0) Albumin/Globulin Ratio 1.0 (1.0-1.7) Urine Collection Type Unknown Urine Color Rosario Urine Clarity Clear Urine pH 5.0 (<5.0-8.0) Urine Specific [place] 1.015 (1.000-1.030) Urine Protein Negative mg/dL (NEG-TRACE) Urine Glucose (UA) Negative mg/dL (NEG) Urine Ketones (Stick) Negative mg/dL (NEG) Urine Blood Negative (NEG) Urine Nitrite Negative (NEG) Urine Bilirubin Small (NEG) Urine Urobilinogen Dipstick 1.0 mg/dL (0.2 mg/dL) Urine Leukocyte Esterase Negative (NEG) Urine RBC Occ /HPF (0-2) Urine WBC Occ /HPF (0-4) Urine Squamous Epithelial Cells Occ /LPF Urine Bacteria 0 /HPF (0-FEW) Urine Hyaline Casts Few /HPF Test 09/22/20 07:10 White Blood Count 18.3 x10^3/uL (4.0-11.0) Red Blood Count 3.89 x10^6/uL (3.50-5.40) Hemoglobin 10.6 g/dL (12.0-15.5) Hematocrit 31.9 % (36.0-47.0) Mean Corpuscular Volume 82 fL (79-100) Mean Corpuscular Hemoglobin 27 pg (25-35) Mean Corpuscular Hemoglobin Concent 33 g/dL (31-37) Red Cell Distribution Width 14.0 % (11.5-14.5) Platelet Count 313 x10^3/uL (140-400) Neutrophils (%) (Auto) 90 % (31-73) Lymphocytes (%) (Auto) 4 % (24-48) Monocytes (%) (Auto) 7 % (0-9) Eosinophils (%) (Auto) 0 % (0-3) Basophils (%) (Auto) 0 % (0-3) Neutrophils # (Auto) 16.4 x10^3/uL (1.8-7.7) Lymphocytes # (Auto) 0.7 x10^3/uL (1.0-4.8) Monocytes # (Auto) 1.2 x10^3/uL (0.0-1.1) Eosinophils # (Auto) 0.0 x10^3/uL (0.0-0.7) Basophils # (Auto) 0.0 x10^3/uL (0.0-0.2) Sodium Level 141 mmol/L (136-145) Potassium Level 4.4 mmol/L (3.5-5.1) Chloride Level 108 mmol/L (98-107) Carbon Dioxide Level 18 mmol/L (21-32) Anion Gap 15 (6-14) Blood Urea Nitrogen 20 mg/dL (7-20) Creatinine 1.3 mg/dL (0.6-1.0) Estimated GFR (Cockcroft-Gault) 39.6 Glucose Level 134 mg/dL (70-99) Calcium Level 7.7 mg/dL (8.5-10.1) Troponin I Quantitative 0.052 ng/mL (0.000-0.055) Procalcitonin 17.56 ng/mL (0.00-0.10) Review of Systems Review of Systems no nv.d. poor appetite no fever Assessment and Plan Assessmemt and Plan Problems Medical Problems: (1) Elevated white blood cell count Status: Acute (2) Hypovolemia Status: Acute (3) Severe sepsis Status: Acute (4) Syncope Status: Acute Comment Review of Relevant I have reviewed the following items arlin (where applicable) has been applied. Labs Laboratory Tests Test 09/21/20 16:47 09/21/20 17:59 09/22/20 00:45 09/22/20 00:55 White Blood Count 19.8 x10^3/uL (4.0-11.0) Red Blood Count 4.54 x10^6/uL (3.50-5.40) Hemoglobin 12.4 g/dL (12.0-15.5) Hematocrit 37.8 % (36.0-47.0) Mean Corpuscular Volume 83 fL (79-100) Mean Corpuscular Hemoglobin 27 pg (25-35) Mean Corpuscular Hemoglobin Concent 33 g/dL (31-37) Red Cell Distribution Width 14.0 % (11.5-14.5) Platelet Count 423 x10^3/uL (140-400) Neutrophils (%) (Auto) 94 % (31-73) Lymphocytes (%) (Auto) 4 % (24-48) Monocytes (%) (Auto) 1 % (0-9) Eosinophils (%) (Auto) 1 % (0-3) Basophils (%) (Auto) 1 % (0-3) Neutrophils # (Auto) 18.6 x10^3/uL (1.8-7.7) Lymphocytes # (Auto) 0.8 x10^3/uL (1.0-4.8) Monocytes # (Auto) 0.2 x10^3/uL (0.0-1.1) Eosinophils # (Auto) 0.1 x10^3/uL (0.0-0.7) Basophils # (Auto) 0.1 x10^3/uL (0.0-0.2) Segmented Neutrophils % 81 % (35-66) Band Neutrophils % 8 % (0-9) Lymphocytes % 8 % (24-48) Monocytes % 2 % (0-10) Eosinophils % 1 % (0-5) Platelet Estimate Adequate (ADEQUATE) Lactic Acid Level 4.6 mmol/L (0.4-2.0) 2.2 mmol/L (0.4-2.0) Troponin I Quantitative 0.077 ng/mL (0.000-0.055) 0.116 ng/mL (0.000-0.055) Sodium Level 138 mmol/L (136-145) Potassium Level 3.1 mmol/L (3.5-5.1) Chloride Level 103 mmol/L (98-107) Carbon Dioxide Level 20 mmol/L (21-32) Anion Gap 15 (6-14) Blood Urea Nitrogen 15 mg/dL (7-20) Creatinine 1.6 mg/dL (0.6-1.0) Estimated GFR (Cockcroft-Gault) 31.2 BUN/Creatinine Ratio 9 (6-20) Glucose Level 141 mg/dL (70-99) Calcium Level 9.4 mg/dL (8.5-10.1) Magnesium Level 2.5 mg/dL (1.8-2.4) Total Bilirubin 0.7 mg/dL (0.2-1.0) Aspartate Amino Transf (AST/SGOT) 23 U/L (15-37) Alanine Aminotransferase (ALT/SGPT) 20 U/L (14-59) Alkaline Phosphatase 234 U/L (46-116) LA-Jph-M-Type Natriuretic Peptide 185 pg/mL (0-449) Total Protein 7.1 g/dL (6.4-8.2) Albumin 3.6 g/dL (3.4-5.0) Albumin/Globulin Ratio 1.0 (1.0-1.7) Urine Collection Type Unknown Urine Color Rosario Urine Clarity Clear Urine pH 5.0 (<5.0-8.0) Urine Specific [place] 1.015 (1.000-1.030) Urine Protein Negative mg/dL (NEG-TRACE) Urine Glucose (UA) Negative mg/dL (NEG) Urine Ketones (Stick) Negative mg/dL (NEG) Urine Blood Negative (NEG) Urine Nitrite Negative (NEG) Urine Bilirubin Small (NEG) Urine Urobilinogen Dipstick 1.0 mg/dL (0.2 mg/dL) Urine Leukocyte Esterase Negative (NEG) Urine RBC Occ /HPF (0-2) Urine WBC Occ /HPF (0-4) Urine Squamous Epithelial Cells Occ /LPF Urine Bacteria 0 /HPF (0-FEW) Urine Hyaline Casts Few /HPF Test 09/22/20 07:10 White Blood Count 18.3 x10^3/uL (4.0-11.0) Red Blood Count 3.89 x10^6/uL (3.50-5.40) Hemoglobin 10.6 g/dL (12.0-15.5) Hematocrit 31.9 % (36.0-47.0) Mean Corpuscular Volume 82 fL (79-100) Mean Corpuscular Hemoglobin 27 pg (25-35) Mean Corpuscular Hemoglobin Concent 33 g/dL (31-37) Red Cell Distribution Width 14.0 % (11.5-14.5) Platelet Count 313 x10^3/uL (140-400) Neutrophils (%) (Auto) 90 % (31-73) Lymphocytes (%) (Auto) 4 % (24-48) Monocytes (%) (Auto) 7 % (0-9) Eosinophils (%) (Auto) 0 % (0-3) Basophils (%) (Auto) 0 % (0-3) Neutrophils # (Auto) 16.4 x10^3/uL (1.8-7.7) Lymphocytes # (Auto) 0.7 x10^3/uL (1.0-4.8) Monocytes # (Auto) 1.2 x10^3/uL (0.0-1.1) Eosinophils # (Auto) 0.0 x10^3/uL (0.0-0.7) Basophils # (Auto) 0.0 x10^3/uL (0.0-0.2) Sodium Level 141 mmol/L (136-145) Potassium Level 4.4 mmol/L (3.5-5.1) Chloride Level 108 mmol/L (98-107) Carbon Dioxide Level 18 mmol/L (21-32) Anion Gap 15 (6-14) Blood Urea Nitrogen 20 mg/dL (7-20) Creatinine 1.3 mg/dL (0.6-1.0) Estimated GFR (Cockcroft-Gault) 39.6 Glucose Level 134 mg/dL (70-99) Calcium Level 7.7 mg/dL (8.5-10.1) Troponin I Quantitative 0.052 ng/mL (0.000-0.055) Procalcitonin 17.56 ng/mL (0.00-0.10) Laboratory Tests Test 09/21/20 16:47 09/21/20 17:59 09/22/20 00:45 09/22/20 00:55 White Blood Count 19.8 x10^3/uL (4.0-11.0) Red Blood Count 4.54 x10^6/uL (3.50-5.40) Hemoglobin 12.4 g/dL (12.0-15.5) Hematocrit 37.8 % (36.0-47.0) Mean Corpuscular Volume 83 fL (79-100) Mean Corpuscular Hemoglobin 27 pg (25-35) Mean Corpuscular Hemoglobin Concent 33 g/dL (31-37) Red Cell Distribution Width 14.0 % (11.5-14.5) Platelet Count 423 x10^3/uL (140-400) Neutrophils (%) (Auto) 94 % (31-73) Lymphocytes (%) (Auto) 4 % (24-48) Monocytes (%) (Auto) 1 % (0-9) Eosinophils (%) (Auto) 1 % (0-3) Basophils (%) (Auto) 1 % (0-3) Neutrophils # (Auto) 18.6 x10^3/uL (1.8-7.7) Lymphocytes # (Auto) 0.8 x10^3/uL (1.0-4.8) Monocytes # (Auto) 0.2 x10^3/uL (0.0-1.1) Eosinophils # (Auto) 0.1 x10^3/uL (0.0-0.7) Basophils # (Auto) 0.1 x10^3/uL (0.0-0.2) Segmented Neutrophils % 81 % (35-66) Band Neutrophils % 8 % (0-9) Lymphocytes % 8 % (24-48) Monocytes % 2 % (0-10) Eosinophils % 1 % (0-5) Platelet Estimate Adequate (ADEQUATE) Lactic Acid Level 4.6 mmol/L (0.4-2.0) 2.2 mmol/L (0.4-2.0) Troponin I Quantitative 0.077 ng/mL (0.000-0.055) 0.116 ng/mL (0.000-0.055) Sodium Level 138 mmol/L (136-145) Potassium Level 3.1 mmol/L (3.5-5.1) Chloride Level 103 mmol/L (98-107) Carbon Dioxide Level 20 mmol/L (21-32) Anion Gap 15 (6-14) Blood Urea Nitrogen 15 mg/dL (7-20) Creatinine 1.6 mg/dL (0.6-1.0) Estimated GFR (Cockcroft-Gault) 31.2 BUN/Creatinine Ratio 9 (6-20) Glucose Level 141 mg/dL (70-99) Calcium Level 9.4 mg/dL (8.5-10.1) Magnesium Level 2.5 mg/dL (1.8-2.4) Total Bilirubin 0.7 mg/dL (0.2-1.0) Aspartate Amino Transf (AST/SGOT) 23 U/L (15-37) Alanine Aminotransferase (ALT/SGPT) 20 U/L (14-59) Alkaline Phosphatase 234 U/L (46-116) MJ-Hjt-K-Type Natriuretic Peptide 185 pg/mL (0-449) Total Protein 7.1 g/dL (6.4-8.2) Albumin 3.6 g/dL (3.4-5.0) Albumin/Globulin Ratio 1.0 (1.0-1.7) Urine Collection Type Unknown Urine Color Rosario Urine Clarity Clear Urine pH 5.0 (<5.0-8.0) Urine Specific [place] 1.015 (1.000-1.030) Urine Protein Negative mg/dL (NEG-TRACE) Urine Glucose (UA) Negative mg/dL (NEG) Urine Ketones (Stick) Negative mg/dL (NEG) Urine Blood Negative (NEG) Urine Nitrite Negative (NEG) Urine Bilirubin Small (NEG) Urine Urobilinogen Dipstick 1.0 mg/dL (0.2 mg/dL) Urine Leukocyte Esterase Negative (NEG) Urine RBC Occ /HPF (0-2) Urine WBC Occ /HPF (0-4) Urine Squamous Epithelial Cells Occ /LPF Urine Bacteria 0 /HPF (0-FEW) Urine Hyaline Casts Few /HPF Test 09/22/20 07:10 White Blood Count 18.3 x10^3/uL (4.0-11.0) Red Blood Count 3.89 x10^6/uL (3.50-5.40) Hemoglobin 10.6 g/dL (12.0-15.5) Hematocrit 31.9 % (36.0-47.0) Mean Corpuscular Volume 82 fL (79-100) Mean Corpuscular Hemoglobin 27 pg (25-35) Mean Corpuscular Hemoglobin Concent 33 g/dL (31-37) Red Cell Distribution Width 14.0 % (11.5-14.5) Platelet Count 313 x10^3/uL (140-400) Neutrophils (%) (Auto) 90 % (31-73) Lymphocytes (%) (Auto) 4 % (24-48) Monocytes (%) (Auto) 7 % (0-9) Eosinophils (%) (Auto) 0 % (0-3) Basophils (%) (Auto) 0 % (0-3) Neutrophils # (Auto) 16.4 x10^3/uL (1.8-7.7) Lymphocytes # (Auto) 0.7 x10^3/uL (1.0-4.8) Monocytes # (Auto) 1.2 x10^3/uL (0.0-1.1) Eosinophils # (Auto) 0.0 x10^3/uL (0.0-0.7) Basophils # (Auto) 0.0 x10^3/uL (0.0-0.2) Sodium Level 141 mmol/L (136-145) Potassium Level 4.4 mmol/L (3.5-5.1) Chloride Level 108 mmol/L (98-107) Carbon Dioxide Level 18 mmol/L (21-32) Anion Gap 15 (6-14) Blood Urea Nitrogen 20 mg/dL (7-20) Creatinine 1.3 mg/dL (0.6-1.0) Estimated GFR (Cockcroft-Gault) 39.6 Glucose Level 134 mg/dL (70-99) Calcium Level 7.7 mg/dL (8.5-10.1) Troponin I Quantitative 0.052 ng/mL (0.000-0.055) Procalcitonin 17.56 ng/mL (0.00-0.10) Medications Current Medications Sodium Chloride 1,000 ml @ 1,000 mls/hr 1X ONCE IV Last administered on 09/21/20at 17:59; Start 09/21/20 at 17:00; Stop 09/21/20 at 17:59; Status DC Vancomycin HCl (Vanco Per Pharmacy) 1 each PRN DAILY PRN MC SEE COMMENTS Last administered on 09/21/20at 21:08; Start 09/21/20 at 18:00; Stop 09/22/20 at 09:35; Status DC Piperacillin Sod/ Tazobactam Sod (Zosyn Per Pharmacy) 1 each PRN DAILY PRN MC SEE COMMENTS; Start 09/21/20 at 18:00 Piperacillin Sod/ Tazobactam Sod 3.375 gm/Sodium Chloride 50 ml @ 100 mls/hr Q6HRS IV Last administered on 09/22/20at 11:40; Start 09/21/20 at 18:00 Vancomycin HCl 1.5 gm/Sodium Chloride 500 ml @ 250 mls/hr 1X ONCE IV Last administered on 09/21/20at 20:56; Start 09/21/20 at 18:30; Stop 09/21/20 at 20:29; Status DC Sodium Chloride 1,000 ml @ 1,000 mls/hr 1X ONCE IV Last administered on 09/21/20at 19:34; Start 09/21/20 at 18:00; Stop 09/21/20 at 18:59; Status DC Norepinephrine Bitartrate 8 mg/ Dextrose 258 ml @ 12.191 mls/ hr 1X ONCE IV ; Start 09/21/20 at 19:15; Stop 09/22/20 at 16:24 Sodium Chloride 1,000 ml @ 1,000 mls/hr 1X ONCE IV Last administered on 09/21/20at 20:58; Start 09/21/20 at 19:30; Stop 09/21/20 at 20:29; Status DC Vancomycin HCl 1 gm/Sodium Chloride 250 ml @ 250 mls/hr Q24H IV ; Start at 21:00; Stop 09/22/20 at 09:26; Status DC Vancomycin HCl (Vancomycin Trough Level) 1 each 1X ONCE MC ; Start 09/23/20 at 20:30; Stop 09/22/20 at 09:26; Status DC Potassium Chloride/Water 100 ml @ 100 mls/hr Q1H IV Last administered on 09/22/20at 02:00; Start 09/21/20 at 22:00; Stop 09/21/20 at 23:59; Status DC Acetaminophen (Tylenol) 650 mg PRN Q6HRS PRN PO MILD PAIN / TEMP > 100.3'F Last administered on 09/22/20at 06:26; Start 09/22/20 at 00:15 Ondansetron HCl (Zofran) 4 mg PRN Q6HRS PRN IVP NAUSEA/VOMITING; Start 09/22/20 at 01:00 Al Hydroxide/Mg Hydroxide (Mylanta Plus Xs) 30 ml PRN Q3HRS PRN PO HEARTBURN / GAS; Start 09/22/20 at 01:00 Calcium Carbonate/ Glycine (Tums) 500 mg PRN Q3HRS PRN PO UPSET STOMACH; Start 09/22/20 at 01:00 Acetaminophen (Tylenol) 650 mg PRN Q6HRS PRN PO Headaches, Temp > 101.5F; Start 09/22/20 at 01:00 Magnesium Hydroxide (Milk Of Magnesia) 2,400 mg PRN Q12HR PRN PO CONSTIPATION; Start 09/22/20 at 01:00 Bisacodyl (Dulcolax Supp) 10 mg PRN DAILY PRN [place] CONSTIPATION; Start 09/22/20 at 01:00 Heparin Sodium (Porcine) (Heparin Sodium) 5,000 unit Q12HR SQ Last administered on 09/22/20at 08:16; Start 09/22/20 at 09:00 Linezolid (Zyvox) 600 mg BID PO ; Start 09/22/20 at 21:00 Active Scripts Active Reported Oxybutynin Chloride 5 Mg Tablet 5 Mg PO BID Paroxetine Hcl 40 Mg Tablet 40 Mg PO DAILY Novi Carbonate 300 Mg Capsule 300 Mg PO QHS Risperidone 0.5 Mg Tablet 0.5 Mg PO TID Gabapentin (Gabapentin) 400 Mg Capsule 400 Mg PO QHS Lisinopril 20 Mg Tablet 1 Tab PO DAILY Vitals/I & O Vital Sign - Last 24 Hours 09/21/20 09/21/20 09/21/20 09/21/20 17:01 17:02 17:31 17:53 Temp 98.6 98.6 Pulse 110 112 103 113 Resp 18 18 18 B/P (MAP) 117/61 (79) Pulse Ox 98 98 97 O2 Delivery Room Air 09/21/20 09/21/20 09/21/20 09/21/20 18:53 19:23 19:53 20:23 Pulse 99 88 85 88 Resp 18 18 Pulse Ox 95 95 97 98 09/21/20 09/21/20 09/21/20 09/21/20 20:53 21:23 21:53 22:23 Pulse 91 89 78 83 Resp 18 18 Pulse Ox 98 98 99 98 09/21/20 09/21/20 09/22/20 09/22/20 22:53 23:30 02:05 07:00 Temp 98.5 99.3 99.6 98.5 99.3 99.6 Pulse 77 99 92 88 Resp 18 18 16 16 B/P (MAP) 140/62 (88) 128/55 (79) 110/47 (68) Pulse Ox 97 94 97 95 O2 Delivery Room Air Room Air Room Air 09/22/20 09/22/20 08:00 11:00 Temp 100.1 100.1 Pulse 108 Resp 16 B/P (MAP) 124/52 (76) Pulse Ox 96 O2 Delivery Room Air Room Air Intake and Output 09/21/20 09/21/20 09/22/20 15:00 23:00 07:00 Intake Total 2050 ml 0 ml Output Total 350 ml Balance 2050 ml -350 ml Justicifation of Admission Dx: Justifications for Admission: Justification of Admission Dx: Yes (sepsis) FABIAN CAMPOS MD Sep 22, 2020 14:38
[2020-09-22] MEDS: SODIUM BICARBONATE 650 MG TABLET. PO SCH ×2 (14:49→20:48)
[2020-09-22 15:00] VITALS: BP 104/50
[2020-09-22] MEDS: risperiDONE 0.25 MG TABLET. PO SCH ×2 (15:41→20:48)
[2020-09-22] MEDS: PARoxetine 20 MG TABLET PO SCH (15:41)
[2020-09-22] MEDS: LISINOPRIL 20 MG TABLET PO SCH (15:41)
[2020-09-22 19:00] VITALS: BP 114/45
[2020-09-22] MEDS: LITHIUM CARBONATE ER 300 MG TABLET.ER PO SCH (20:48)
[2020-09-22] MEDS: LACTOBACILLUS RHAMNOSUS GG 1 CAPSULE. PO SCH (20:48)
[2020-09-22] MEDS: OXYBUTYNIN CHLORIDE 5 MG TABLET PO SCH (20:48)
[2020-09-22] MEDS: GABAPENTIN 400 MG CAPSULE. PO SCH (20:49)
[2020-09-22] MEDS: LINEZOLID 600 MG TABLET PO SCH (20:49)
[2020-09-22] MEDS ORDERED: VANCOMYCIN 1 GM in IV NORMAL SALINE 250ML 250 ML IV SCH (21:00)
[2020-09-22 22:54] VITALS: BP 93/35
[2020-09-23 02:49] VITALS: BP 108/35
[2020-09-23 04:44] LABS: BASO % 0 % (0-3); EOS # 0.1 x10^3/uL (0.0-0.7); EOS % 0 % (0-3); HEMATOCRIT 27.2 % (36.0-47.0); HEMOGLOBIN 9.1 g/dL (12.0-15.5); LYMPH # 0.7 x10^3/uL (1.0-4.8); LYMPH % 5 % (24-48); MEAN CORPUSCULAR HEMOGLOBIN 28 pg (25-35); MEAN CORPUSCULAR HGB CONC 33 g/dL (31-37); MEAN CORPUSCULAR VOLUME 83 fL (79-100); MONO # 1.2 x10^3/uL (0.0-1.1); MONO % 8 % (0-9); NEUT # 12.4 x10^3/uL (1.8-7.7); NEUT % 86 % (31-73); PLATELET COUNT 251 x10^3/uL (140-400); RED BLOOD COUNT 3.28 x10^6/uL (3.50-5.40); RED CELL DISTRIBUTION WIDTH 14.1 % (11.5-14.5); WHITE BLOOD COUNT 14.3 x10^3/uL (4.0-11.0)
[2020-09-23 05:03] LABS: CALCIUM 7.9 mg/dL (8.5-10.1); CREATININE 1.3 mg/dL (0.6-1.0); GFR 39.6; POTASSIUM 3.1 mmol/L (3.5-5.1)
[2020-09-23] MEDS: PIPERACILLIN/TAZOBACTAM 3.375 GM in IV NORMAL SALINE 50ML 50 ML IV SCH ×3 (05:52→17:33)
[2020-09-23 07:00] VITALS: BP 123/53
[2020-09-23] MEDS: LACTOBACILLUS RHAMNOSUS GG 1 CAPSULE. PO SCH ×2 (08:11→20:52)
[2020-09-23] MEDS: SODIUM BICARBONATE 650 MG TABLET. PO SCH ×3 (08:11→20:52)
[2020-09-23] MEDS: OXYBUTYNIN CHLORIDE 5 MG TABLET PO SCH ×2 (08:11→20:52)
[2020-09-23] MEDS: LISINOPRIL 20 MG TABLET PO SCH (08:11)
[2020-09-23] MEDS: ACETAMINOPHEN 325 MG TABLET. PO PRN ×2 (08:11→22:28)
[2020-09-23] MEDS: PARoxetine 20 MG TABLET PO SCH (08:11)
[2020-09-23] MEDS: LINEZOLID 600 MG TABLET PO SCH ×2 (08:12→20:53)
[2020-09-23] MEDS: risperiDONE 0.25 MG TABLET. PO SCH ×3 (08:12→20:53)
[2020-09-23] MEDS: HEPARIN for SUB-Q USE 5,000 UNIT/ML VIAL. SQ SCH ×2 (08:17→20:54)
--- NOTE | 2020-09-23 09:13 | PDOC ---
Infectious Disease Note Subjective Subjective pt is feeling better ROS ROS no n/v/ did have diarrhea Vital Sign Vital Signs Vital Signs Date Time Temp Pulse Resp B/P (MAP) Pulse Ox O2 Delivery O2 Flow Rate FiO2 09/23/20 08:11 102 123/53 09/23/20 08:00 Room Air 09/23/20 07:00 100.4 18 92 100.4 Physical Exam PHYSICAL EXAM GENERAL: Alert, oriented x 3 female, slow in answering questions, in no acute distress. HEENT: Normocephalic, atraumatic, anicteric. Oral mucosa moist. NECK: Supple, no JVD, no lymphadenopathy. LUNGS: Clear bilaterally. No wheezing. No accessory muscle use. HEART: S1, S2, no murmurs. ABDOMEN: Soft, mild tenderness in the suprapubic area. No rebound, no guarding. Bowel sounds present. EXTREMITIES: No edema, no cyanosis. DERMATOLOGIC: Warm and dry. No generalized rash. CENTRAL NERVOUS SYSTEM: Alert and oriented x 3, grossly nonfocal, little slow in answering questions. PSYCHIATRIC: Flat affect, otherwise cooperative. Labs Lab Laboratory Tests Test 09/23/20 04:15 White Blood Count 14.3 x10^3/uL (4.0-11.0) Red Blood Count 3.28 x10^6/uL (3.50-5.40) Hemoglobin 9.1 g/dL (12.0-15.5) Hematocrit 27.2 % (36.0-47.0) Mean Corpuscular Volume 83 fL (79-100) Mean Corpuscular Hemoglobin 28 pg (25-35) Mean Corpuscular Hemoglobin Concent 33 g/dL (31-37) Red Cell Distribution Width 14.1 % (11.5-14.5) Platelet Count 251 x10^3/uL (140-400) Neutrophils (%) (Auto) 86 % (31-73) Lymphocytes (%) (Auto) 5 % (24-48) Monocytes (%) (Auto) 8 % (0-9) Eosinophils (%) (Auto) 0 % (0-3) Basophils (%) (Auto) 0 % (0-3) Neutrophils # (Auto) 12.4 x10^3/uL (1.8-7.7) Lymphocytes # (Auto) 0.7 x10^3/uL (1.0-4.8) Monocytes # (Auto) 1.2 x10^3/uL (0.0-1.1) Eosinophils # (Auto) 0.1 x10^3/uL (0.0-0.7) Basophils # (Auto) 0.0 x10^3/uL (0.0-0.2) Sodium Level 139 mmol/L (136-145) Potassium Level 3.1 mmol/L (3.5-5.1) Chloride Level 108 mmol/L (98-107) Carbon Dioxide Level 22 mmol/L (21-32) Anion Gap 9 (6-14) Blood Urea Nitrogen 23 mg/dL (7-20) Creatinine 1.3 mg/dL (0.6-1.0) Estimated GFR (Cockcroft-Gault) 39.6 Glucose Level 121 mg/dL (70-99) Calcium Level 7.9 mg/dL (8.5-10.1) Micro Microbiology 09/22/20 Blood Culture - Preliminary, Resulted NO GROWTH AFTER 1 DAY Objective Assessment IMPRESSION: 1. Leukocytosis. 2. Sepsis, source unclear. 3. Lactic acidosis. 4. Acute kidney injury. 5. Small left pneumothorax. 6. Colitis on CT with constipation, nausea and vomiting with alternating bowel movements. 7. History of fall. CT head and neck negative. 8. Parkinson's with tardive dyskinesia. 9. Increased troponin. 10. Hypokalemia. Plan Plan of Care Zyvox and continue Zosyn. 3. Follow up labs and cultures. 4. Continue supportive care. 5. Discussed with daughter at bedside. check c diff PEGGY CORONA MD Sep 23, 2020 09:13
[2020-09-23 10:06] VITALS: BP 126/55
--- NOTE | 2020-09-23 10:12 | EKG ---
[facility] [address] [place] [address] Test Date: 2020-09-21 Test Time: 16:55:07 Pat Name: CHEN JESUS Department: Room: Gender: F Chief Port Director: : 1940 Requested By: DELVIN BAÑUELOS Order Number: [id number] Reading MD: Measurements Intervals [place] Rate: 135 P: 234 LA: 92 QRS: -25 QRSD: 80 T: -90 QT: 330 QTc: 500 Interpretive Statements SUPRAVENTRICULAR TACHYCARDIA LEFTWARD AXIS QRS(T) CONTOUR ABNORMALITY CONSISTENT WITH INFERIOR INFARCT AGE UNDETERMINED ST & T ABNORMALITY, CONSIDER HIGH LATERAL ISCHEMIA OR LEFT VENTRICULAR STRAIN ABNORMAL ECG RI6.02 No previous ECG available for comparison
[2020-09-23] MEDS ORDERED: POTASSIUM CHLORIDE 20 MEQ TABLET.ER. PO ONE (12:00)
[2020-09-23 14:15] VITALS: BP 119/37
--- NOTE | 2020-09-23 15:38 | PDOC ---
[employer] PROGRESS NOTE Date of Service DOS: DATE: 09/23/20 TIME: 15:34 Chief Complaint Chief Complaint Sepsis, NOS, severe sepsis on admit, with lactic acidosis Hypokalemia, 3.1 today Elevated troponins, demand 2 parkinsons disease, chronic weakness acute metabolic acidosis - improved KEVON due to vasomotor nephropathy IV Potassium replacement Pending C Diff PCR Continue with Zyvox and Zosyn per ID Heparin for DVT prophlaxis History of Present Illness History of Present Illness 09/23/20 No acute events. Tmax of 100.4. patient feels better but still has some diarrhea. Pending C Diff PCR. > 50% time spent in patient chart, labs, and image review and discussion with RN and SW 09/22 Chest x-ray clear on broad abx vitals better, was given levaphed yesterday OOB to chair, daughter here today ID following, changed abx, renal fxn Vitals/I&O Vitals/I&O: Vital Signs Date Time Temp Pulse Resp B/P (MAP) Pulse Ox O2 Delivery O2 Flow Rate FiO2 09/23/20 14:15 99.2 83 18 119/37 (64) 94 Room Air 99.2 I & O 09/22/20 09/22/20 09/23/20 14:59 22:59 06:59 Intake Total 50 ml 290 ml 100 ml Output Total 750 ml 150 ml Balance 50 ml -460 ml -50 ml Physical Exam Physical Exam: GENERAL: Alert, oriented x 3 female, slow in answering questions, in no acute distress. HEENT: Normocephalic, atraumatic, anicteric. Oral mucosa moist. NECK: Supple, no JVD, no lymphadenopathy. LUNGS: Clear bilaterally. No wheezing. No accessory muscle use. HEART: S1, S2, no murmurs. ABDOMEN: Soft, mild tenderness in the suprapubic area. No rebound, no guarding. Bowel sounds present. EXTREMITIES: No edema, no cyanosis. DERMATOLOGIC: Warm and dry. No generalized rash. CENTRAL NERVOUS SYSTEM: Alert and oriented x 3, grossly nonfocal, little slow in answering questions. PSYCHIATRIC: Flat affect, otherwise cooperative. General: Alert, Oriented X3, Cooperative, No acute distress Heart: Regular rate, Normal S2 Lungs: Clear Abdomen: Normal bowel sounds Extremities: No cyanosis Skin: No rashes Labs Labs: Laboratory Tests Test 09/23/20 04:15 White Blood Count 14.3 x10^3/uL (4.0-11.0) Red Blood Count 3.28 x10^6/uL (3.50-5.40) Hemoglobin 9.1 g/dL (12.0-15.5) Hematocrit 27.2 % (36.0-47.0) Mean Corpuscular Volume 83 fL (79-100) Mean Corpuscular Hemoglobin 28 pg (25-35) Mean Corpuscular Hemoglobin Concent 33 g/dL (31-37) Red Cell Distribution Width 14.1 % (11.5-14.5) Platelet Count 251 x10^3/uL (140-400) Neutrophils (%) (Auto) 86 % (31-73) Lymphocytes (%) (Auto) 5 % (24-48) Monocytes (%) (Auto) 8 % (0-9) Eosinophils (%) (Auto) 0 % (0-3) Basophils (%) (Auto) 0 % (0-3) Neutrophils # (Auto) 12.4 x10^3/uL (1.8-7.7) Lymphocytes # (Auto) 0.7 x10^3/uL (1.0-4.8) Monocytes # (Auto) 1.2 x10^3/uL (0.0-1.1) Eosinophils # (Auto) 0.1 x10^3/uL (0.0-0.7) Basophils # (Auto) 0.0 x10^3/uL (0.0-0.2) Sodium Level 139 mmol/L (136-145) Potassium Level 3.1 mmol/L (3.5-5.1) Chloride Level 108 mmol/L (98-107) Carbon Dioxide Level 22 mmol/L (21-32) Anion Gap 9 (6-14) Blood Urea Nitrogen 23 mg/dL (7-20) Creatinine 1.3 mg/dL (0.6-1.0) Estimated GFR (Cockcroft-Gault) 39.6 Glucose Level 121 mg/dL (70-99) Calcium Level 7.9 mg/dL (8.5-10.1) Assessment and Plan Assessmemt and Plan Problems Medical Problems: (1) Elevated white blood cell count Status: Acute (2) Hypovolemia Status: Acute (3) Severe sepsis Status: Acute (4) Syncope Status: Acute Comment Review of Relevant I have reviewed the following items arlin (where applicable) has been applied. Medications: Current Medications Medications (Trade) Dose Ordered Sig/Daisy Route PRN Reason Start Time Stop Time Status Last Admin Dose Admin Linezolid (Zyvox) 600 mg BID PO 09/22/20 21:00 09/23/20 08:12 Gabapentin (Neurontin) 400 mg QHS PO 09/22/20 21:00 09/22/20 20:49 Lisinopril (Prinivil) 20 mg DAILY PO 09/22/20 16:00 09/23/20 08:11 Oxybutynin Chloride (Ditropan) 5 mg BID PO 09/22/20 21:00 09/23/20 08:11 [place] Carbonate (Lithobid) 300 mg QHS PO 09/22/20 21:00 09/22/20 20:48 Paroxetine HCl (Paxil) 40 mg DAILY PO 09/22/20 16:00 09/23/20 08:11 Lactobacillus Rhamnosus (Culturelle) 1 cap BID PO 09/22/20 21:00 09/23/20 08:11 Potassium Chloride (Klor-Con) 40 meq 1X ONCE PO 09/23/20 12:00 09/23/20 12:02 DC 09/23/20 12:15 Justifications for Admission Other Justification Sepsis, septic shock SUNNY DOLAN MD Sep 23, 2020 15:38
[2020-09-23 19:20] VITALS: BP 129/46
[2020-09-23] MEDS: GABAPENTIN 400 MG CAPSULE. PO SCH (20:52)
[2020-09-23] MEDS: LITHIUM CARBONATE ER 300 MG TABLET.ER PO SCH (20:52)
[2020-09-23 23:30] VITALS: BP 112/50
[2020-09-24] MEDS: PIPERACILLIN/TAZOBACTAM 3.375 GM in IV NORMAL SALINE 50ML 50 ML IV SCH ×3 (00:18→06:09)
[2020-09-24 03:40] VITALS: BP 110/53
[2020-09-24 06:54] LABS: BASO % 0 % (0-3); EOS # 0.3 x10^3/uL (0.0-0.7); EOS % 2 % (0-3); HEMATOCRIT 25.5 % (36.0-47.0); HEMOGLOBIN 8.6 g/dL (12.0-15.5); LYMPH # 1.1 x10^3/uL (1.0-4.8); LYMPH % 8 % (24-48); MEAN CORPUSCULAR HEMOGLOBIN 27 pg (25-35); MEAN CORPUSCULAR HGB CONC 34 g/dL (31-37); MEAN CORPUSCULAR VOLUME 81 fL (79-100); MONO # 0.9 x10^3/uL (0.0-1.1); MONO % 7 % (0-9); NEUT # 10.3 x10^3/uL (1.8-7.7); NEUT % 82 % (31-73); PLATELET COUNT 241 x10^3/uL (140-400); RED BLOOD COUNT 3.13 x10^6/uL (3.50-5.40); RED CELL DISTRIBUTION WIDTH 14.2 % (11.5-14.5); WHITE BLOOD COUNT 12.6 x10^3/uL (4.0-11.0)
[2020-09-24 07:00] VITALS: BP 113/45
[2020-09-24 07:12] LABS: CALCIUM 7.8 mg/dL (8.5-10.1); CREATININE 0.9 mg/dL (0.6-1.0); GFR 60.6; POTASSIUM 3.4 mmol/L (3.5-5.1)
--- NOTE | 2020-09-24 08:51 | PDOC ---
Infectious Disease Note Subjective Subjective pt is feeling better ROS ROS no n/v/d/, walking with walker Vital Sign Vital Signs Vital Signs Date Time Temp Pulse Resp B/P (MAP) Pulse Ox O2 Delivery O2 Flow Rate FiO2 09/24/20 03:40 98.4 71 20 110/53 (72) 92 Room Air 98.4 Physical Exam PHYSICAL EXAM GENERAL: Alert, oriented x 3 female, slow in answering questions, in no acute distress. HEENT: Normocephalic, atraumatic, anicteric. Oral mucosa moist. NECK: Supple, no JVD, no lymphadenopathy. LUNGS: Clear bilaterally. No wheezing. No accessory muscle use. HEART: S1, S2, no murmurs. ABDOMEN: Soft, mild tenderness in the suprapubic area. No rebound, no guarding. Bowel sounds present. EXTREMITIES: No edema, no cyanosis. DERMATOLOGIC: Warm and dry. No generalized rash. CENTRAL NERVOUS SYSTEM: Alert and oriented x 3, grossly nonfocal, little slow in answering questions. PSYCHIATRIC: Flat affect, otherwise cooperative. Labs Lab Laboratory Tests Test 09/24/20 06:10 White Blood Count 12.6 x10^3/uL (4.0-11.0) Red Blood Count 3.13 x10^6/uL (3.50-5.40) Hemoglobin 8.6 g/dL (12.0-15.5) Hematocrit 25.5 % (36.0-47.0) Mean Corpuscular Volume 81 fL (79-100) Mean Corpuscular Hemoglobin 27 pg (25-35) Mean Corpuscular Hemoglobin Concent 34 g/dL (31-37) Red Cell Distribution Width 14.2 % (11.5-14.5) Platelet Count 241 x10^3/uL (140-400) Neutrophils (%) (Auto) 82 % (31-73) Lymphocytes (%) (Auto) 8 % (24-48) Monocytes (%) (Auto) 7 % (0-9) Eosinophils (%) (Auto) 2 % (0-3) Basophils (%) (Auto) 0 % (0-3) Neutrophils # (Auto) 10.3 x10^3/uL (1.8-7.7) Lymphocytes # (Auto) 1.1 x10^3/uL (1.0-4.8) Monocytes # (Auto) 0.9 x10^3/uL (0.0-1.1) Eosinophils # (Auto) 0.3 x10^3/uL (0.0-0.7) Basophils # (Auto) 0.0 x10^3/uL (0.0-0.2) Sodium Level 142 mmol/L (136-145) Potassium Level 3.4 mmol/L (3.5-5.1) Chloride Level 110 mmol/L (98-107) Carbon Dioxide Level 22 mmol/L (21-32) Anion Gap 10 (6-14) Blood Urea Nitrogen 18 mg/dL (7-20) Creatinine 0.9 mg/dL (0.6-1.0) Estimated GFR (Cockcroft-Gault) 60.6 Glucose Level 104 mg/dL (70-99) Calcium Level 7.8 mg/dL (8.5-10.1) Micro Microbiology 09/22/20 Blood Culture - Preliminary, Resulted NO GROWTH AFTER 1 DAY Objective Assessment IMPRESSION: 1. Leukocytosis. 2. Sepsis, source unclear. 3. Lactic acidosis. 4. Acute kidney injury. 5. Small left pneumothorax. 6. Colitis on CT with constipation, nausea and vomiting with alternating bowel movements. 7. History of fall. CT head and neck negative. 8. Parkinson's with tardive dyskinesia. 9. Increased troponin. 10. Hypokalemia. Plan Plan of Care 3. Follow up labs and cultures. 4. Continue supportive care. 5. Discussed with daughter at bedside. check c diff change antibiotics to po augmentin for dc PEGGY CORONA MD Sep 24, 2020 08:51
[2020-09-24] MEDS: SODIUM BICARBONATE 650 MG TABLET. PO SCH ×3 (09:19→21:47)
[2020-09-24] MEDS: AMOXICILLIN/K CLAV 875/125MG TABLET. PO SCH ×2 (09:19→21:47)
[2020-09-24] MEDS: OXYBUTYNIN CHLORIDE 5 MG TABLET PO SCH ×2 (09:20→21:46)
[2020-09-24] MEDS: LACTOBACILLUS RHAMNOSUS GG 1 CAPSULE. PO SCH ×2 (09:20→21:46)
[2020-09-24] MEDS: PARoxetine 20 MG TABLET PO SCH (09:21)
[2020-09-24] MEDS: ACETAMINOPHEN 325 MG TABLET. PO PRN (09:21)
[2020-09-24] MEDS: LISINOPRIL 20 MG TABLET PO SCH (09:21)
[2020-09-24] MEDS: risperiDONE 0.25 MG TABLET. PO SCH ×3 (09:21→21:47)
[2020-09-24] MEDS: HEPARIN for SUB-Q USE 5,000 UNIT/ML VIAL. SQ SCH ×2 (09:34→21:44)
[2020-09-24] MEDS ORDERED: POTASSIUM CHLORIDE 20 MEQ TABLET.ER. PO ONE (09:45)
[2020-09-24 10:48] VITALS: BP 127/66
--- NOTE | 2020-09-24 11:35 | NUR ---
SS following for discharge planning. SS reviewed pt chart and discussed with pt RN. Pt is from home with family and is currently on room air. PT/OT recommended acute rehabilitation. SS met with pt and pt's family in room to discuss discharge planning. Pt and pt's family requesting to return to home with home healthcare with no preference of company. Referral phoned and faxed to [facility], ; fax [phone]. SS will continue to follow for discharge planning.
--- NOTE | 2020-09-24 11:55 | PDOC ---
[facility] PROGRESS NOTE Date of Service DOS: DATE: 09/24/20 TIME: 11:44 Chief Complaint Chief Complaint Sepsis, NOS, severe sepsis on admit, with lactic acidosis Hypokalemia, 3.1 today Elevated troponins, demand 2 parkinsons disease, chronic weakness acute metabolic acidosis - improved KEVON due to vasomotor nephropathy Acute encephalopathy NOS Psychiatry consult for bipolar disorder and lithium adjustments IV Potassium replacement Pending C Diff PCR Continue with Zyvox and Zosyn per ID Heparin for DVT prophlaxis History of Present Illness History of Present Illness 09/24/2020 No acute events overnight. Patient feels better at this morning. Saturating 90% on room air. Transition from IV to p.o. Augmentin per ID. Did work with physical therapy which they recommended home health for her. Daughter in the room states that the patient is not yet at her baseline mainly because she is still somewhat confused and dazed. Normally the patient is fairly active at home and walks at home without a walker. Patient does not have any tardive dyskinesia signs at this time or any lip smacking. Patient's chart, labs, images were reviewed and discussed with RN 09/23/20 No acute events. Tmax of 100.4. patient feels better but still has some diarrhea. Pending C Diff PCR. > 50% time spent in patient chart, labs, and image review and discussion with RN and FERDINAND 09/22 Chest x-ray clear on broad abx vitals better, was given levaphed yesterday OOB to chair, daughter here today ID following, changed abx, renal fxn Vitals/I&O Vitals/I&O: Vital Signs Date Time Temp Pulse Resp B/P (MAP) Pulse Ox O2 Delivery O2 Flow Rate FiO2 09/24/20 10:48 98.1 82 18 127/66 (86) 93 Room Air 98.1 I & O 09/23/20 09/23/20 09/24/20 15:00 23:00 07:00 Intake Total 720 ml 300 ml Output Total 300 ml Balance -300 ml 720 ml 300 ml Physical Exam Physical Exam: GENERAL: Alert, oriented x 3 female, slow in answering questions, in no acute distress. HEENT: Normocephalic, atraumatic, anicteric. Oral mucosa moist. NECK: Supple, no JVD, no lymphadenopathy. LUNGS: Clear bilaterally. No wheezing. No accessory muscle use. HEART: S1, S2, no murmurs. ABDOMEN: Soft, mild tenderness in the suprapubic area. No rebound, no guarding. Bowel sounds present. EXTREMITIES: No edema, no cyanosis. DERMATOLOGIC: Warm and dry. No generalized rash. CENTRAL NERVOUS SYSTEM: Alert and oriented x 3, grossly nonfocal, little slow in answering questions. PSYCHIATRIC: Flat affect, otherwise cooperative. General: Alert, Oriented X3, Cooperative, No acute distress Heart: Regular rate, Normal S2 Lungs: Clear Abdomen: Normal bowel sounds Extremities: No cyanosis Skin: No rashes Labs Labs: Laboratory Tests Test 09/24/20 06:10 White Blood Count 12.6 x10^3/uL (4.0-11.0) Red Blood Count 3.13 x10^6/uL (3.50-5.40) Hemoglobin 8.6 g/dL (12.0-15.5) Hematocrit 25.5 % (36.0-47.0) Mean Corpuscular Volume 81 fL (79-100) Mean Corpuscular Hemoglobin 27 pg (25-35) Mean Corpuscular Hemoglobin Concent 34 g/dL (31-37) Red Cell Distribution Width 14.2 % (11.5-14.5) Platelet Count 241 x10^3/uL (140-400) Neutrophils (%) (Auto) 82 % (31-73) Lymphocytes (%) (Auto) 8 % (24-48) Monocytes (%) (Auto) 7 % (0-9) Eosinophils (%) (Auto) 2 % (0-3) Basophils (%) (Auto) 0 % (0-3) Neutrophils # (Auto) 10.3 x10^3/uL (1.8-7.7) Lymphocytes # (Auto) 1.1 x10^3/uL (1.0-4.8) Monocytes # (Auto) 0.9 x10^3/uL (0.0-1.1) Eosinophils # (Auto) 0.3 x10^3/uL (0.0-0.7) Basophils # (Auto) 0.0 x10^3/uL (0.0-0.2) Sodium Level 142 mmol/L (136-145) Potassium Level 3.4 mmol/L (3.5-5.1) Chloride Level 110 mmol/L (98-107) Carbon Dioxide Level 22 mmol/L (21-32) Anion Gap 10 (6-14) Blood Urea Nitrogen 18 mg/dL (7-20) Creatinine 0.9 mg/dL (0.6-1.0) Estimated GFR (Cockcroft-Gault) 60.6 Glucose Level 104 mg/dL (70-99) Calcium Level 7.8 mg/dL (8.5-10.1) Assessment and Plan Assessmemt and Plan Problems Medical Problems: (1) Elevated white blood cell count Status: Acute (2) Hypovolemia Status: Acute (3) Severe sepsis Status: Acute (4) Syncope Status: Acute Comment Review of Relevant I have reviewed the following items arlin (where applicable) has been applied. Medications: Current Medications Medications (Trade) Dose Ordered Sig/Daisy Route PRN Reason Start Time Stop Time Status Last Admin Dose Admin Potassium Chloride (Klor-Con) 40 meq 1X ONCE PO 09/23/20 12:00 09/23/20 12:02 DC 09/23/20 12:15 Amoxicillin/ Clavulanate Potassium (Augmentin 875/ 125mg) 1 tab BID PO 09/24/20 09:00 09/24/20 09:19 Potassium Chloride (Klor-Con) 40 meq 1X ONCE PO 09/24/20 09:45 09/24/20 09:46 DC 09/24/20 09:59 Justifications for Admission Other Justification Sepsis, septic shock SUNNY DOLAN MD Sep 24, 2020 11:55
[2020-09-24 12:01] LABS: LI 0.6 mmol/L (0.6-1.2)
[2020-09-24 14:45] VITALS: BP 103/47
[2020-09-24 19:44] VITALS: BP 140/55
[2020-09-24] MEDS ORDERED: rOPINIRole 0.25 MG TABLET. PO SCH (21:00)
[2020-09-24] MEDS: LITHIUM CARBONATE ER 300 MG TABLET.ER PO SCH (21:46)
[2020-09-24] MEDS: GABAPENTIN 400 MG CAPSULE. PO SCH (21:47)
[2020-09-24 22:52] VITALS: BP 144/65
[2020-09-25 03:00] VITALS: BP 137/63
[2020-09-25 05:30] LABS: BASO # 0.1 x10^3/uL (0.0-0.2); BASO % 0 % (0-3); EOS # 0.4 x10^3/uL (0.0-0.7); EOS % 3 % (0-3); HEMATOCRIT 27.1 % (36.0-47.0); HEMOGLOBIN 8.9 g/dL (12.0-15.5); LYMPH # 1.2 x10^3/uL (1.0-4.8); LYMPH % 8 % (24-48); MEAN CORPUSCULAR HEMOGLOBIN 27 pg (25-35); MEAN CORPUSCULAR HGB CONC 33 g/dL (31-37); MEAN CORPUSCULAR VOLUME 83 fL (79-100); MONO # 1.2 x10^3/uL (0.0-1.1); MONO % 9 % (0-9); NEUT # 11.4 x10^3/uL (1.8-7.7); NEUT % 80 % (31-73); PLATELET COUNT 297 x10^3/uL (140-400); RED BLOOD COUNT 3.28 x10^6/uL (3.50-5.40); RED CELL DISTRIBUTION WIDTH 14.6 % (11.5-14.5); WHITE BLOOD COUNT 14.2 x10^3/uL (4.0-11.0)
[2020-09-25 05:58] LABS: CREATININE 1.1 mg/dL (0.6-1.0); POTASSIUM 3.9 mmol/L (3.5-5.1)
--- NOTE | 2020-09-25 06:25 | NUR ---
Phone call placed to Dr Acuna regarding consult, Dr verbalized he is not due to come back until next week. will inform Christel JANSEN. PMRN
[2020-09-25 07:00] VITALS: BP 142/67
[2020-09-25] MEDS: AMOXICILLIN/K CLAV 875/125MG TABLET. PO SCH (08:35)
[2020-09-25] MEDS: PARoxetine 20 MG TABLET PO SCH (08:35)
[2020-09-25] MEDS: LACTOBACILLUS RHAMNOSUS GG 1 CAPSULE. PO SCH (08:35)
[2020-09-25] MEDS: risperiDONE 0.25 MG TABLET. PO SCH ×2 (08:35→15:36)
[2020-09-25] MEDS: OXYBUTYNIN CHLORIDE 5 MG TABLET PO SCH (08:35)
[2020-09-25] MEDS: LISINOPRIL 20 MG TABLET PO SCH (08:35)
[2020-09-25] MEDS: SODIUM BICARBONATE 650 MG TABLET. PO SCH ×2 (08:35→15:36)
[2020-09-25] MEDS: HEPARIN for SUB-Q USE 5,000 UNIT/ML VIAL. SQ SCH (08:38)
--- NOTE | 2020-09-25 08:59 | PDOC ---
Infectious Disease Note Subjective Subjective pt is feeling better ROS ROS no n/v/d/fever/sob Vital Sign Vital Signs Vital Signs Date Time Temp Pulse Resp B/P (MAP) Pulse Ox O2 Delivery O2 Flow Rate FiO2 09/25/20 08:35 81 142/67 09/25/20 08:00 Room Air 09/25/20 07:00 98.5 16 93 98.5 Physical Exam PHYSICAL EXAM GENERAL: Alert, oriented x 3 female, slow in answering questions, in no acute distress. HEENT: Normocephalic, atraumatic, anicteric. Oral mucosa moist. NECK: Supple, no JVD, no lymphadenopathy. LUNGS: Clear bilaterally. No wheezing. No accessory muscle use. HEART: S1, S2, no murmurs. ABDOMEN: Soft, mild tenderness in the suprapubic area. No rebound, no guarding. Bowel sounds present. EXTREMITIES: No edema, no cyanosis. DERMATOLOGIC: Warm and dry. No generalized rash. CENTRAL NERVOUS SYSTEM: Alert and oriented x 3, grossly nonfocal, little slow in answering questions. PSYCHIATRIC: Flat affect, otherwise cooperative. Labs Lab Laboratory Tests Test 09/25/20 04:15 White Blood Count 14.2 x10^3/uL (4.0-11.0) Red Blood Count 3.28 x10^6/uL (3.50-5.40) Hemoglobin 8.9 g/dL (12.0-15.5) Hematocrit 27.1 % (36.0-47.0) Mean Corpuscular Volume 83 fL (79-100) Mean Corpuscular Hemoglobin 27 pg (25-35) Mean Corpuscular Hemoglobin Concent 33 g/dL (31-37) Red Cell Distribution Width 14.6 % (11.5-14.5) Platelet Count 297 x10^3/uL (140-400) Neutrophils (%) (Auto) 80 % (31-73) Lymphocytes (%) (Auto) 8 % (24-48) Monocytes (%) (Auto) 9 % (0-9) Eosinophils (%) (Auto) 3 % (0-3) Basophils (%) (Auto) 0 % (0-3) Neutrophils # (Auto) 11.4 x10^3/uL (1.8-7.7) Lymphocytes # (Auto) 1.2 x10^3/uL (1.0-4.8) Monocytes # (Auto) 1.2 x10^3/uL (0.0-1.1) Eosinophils # (Auto) 0.4 x10^3/uL (0.0-0.7) Basophils # (Auto) 0.1 x10^3/uL (0.0-0.2) Sodium Level 142 mmol/L (136-145) Potassium Level 3.9 mmol/L (3.5-5.1) Chloride Level 109 mmol/L (98-107) Carbon Dioxide Level 26 mmol/L (21-32) Anion Gap 7 (6-14) Blood Urea Nitrogen 14 mg/dL (7-20) Creatinine 1.1 mg/dL (0.6-1.0) Estimated GFR (Cockcroft-Gault) 48.0 Glucose Level 103 mg/dL (70-99) Calcium Level 8.0 mg/dL (8.5-10.1) Micro Microbiology 09/22/20 Blood Culture - Preliminary, Resulted NO GROWTH AFTER 1 DAY Objective Assessment IMPRESSION: 1. Leukocytosis. 2. Sepsis, source unclear. 3. Lactic acidosis. 4. Acute kidney injury. 5. Small left pneumothorax. 6. Colitis on CT with constipation, nausea and vomiting with alternating bowel movements. 7. History of fall. CT head and neck negative. 8. Parkinson's with tardive dyskinesia. 9. Increased troponin. 10. Hypokalemia. Plan Plan of Care 3. Follow up labs and cultures. 4. Continue supportive care. 5. Discussed with daughter at bedside. po augmentin for PEGGY Newman MD Sep 25, 2020 08:58
[2020-09-25 11:00] VITALS: BP 135/56
[2020-09-25] MEDS ORDERED: AMOX1TAB11 PO (11:59)
[2020-09-25] MEDS: ACETAMINOPHEN 325 MG TABLET. PO PRN (12:01)
--- NOTE | 2020-09-25 12:02 | DISCH ---
DISCHARGE INSTRUCTIONS Condition on Discharge Condition on Discharge: Stable Activity After Discharge Activity Instructions for Disc: Activity as tolerated Lifting Instructions after Dis: Do not lift >10 pounds Driving Instructions after Dis: Do not drive today Weight Bearing Status after Di: As tolerated Diet after Discharge Diet after Discharge: Cardiac Checks after Discharge Checks after discharge: Check blood press - daily DC Comment: CBC, CMP within 2 weeks of discharge Follow-Up Follow up with: PCP within 2 weeks of discharge SUNNY DOLAN MD Sep 25, 2020 12:02
--- NOTE | 2020-09-25 13:01 | SNU/HH DC ---
DISCHARGE WITH HOME HEALTH DISCHARGE INFORMATION: Discharge Date: Sep 25, 2020 Final Diagnosis: Problems Medical Problems: (1) Elevated white blood cell count Status: Acute (2) Hypovolemia Status: Acute (3) Severe sepsis Status: Acute (4) Syncope Status: Acute Condition on Discharge: Stable CODE STATUS: Code Status: Full HOME HEALTH: Face to Face: I certify this patient is under my care and that I, or a nurse practitioner or physician's pathologist assistant working with me, had a face to face encounter that meets the physician face to face encounter requirements with this patient on []. Medical Complications: Falls, HTN Assisted For: Assess Cardiopulm Status, Assess & Educate Safety, Assess/Skilled Observatio, Medication Management RN For Eval/Treatment: Yes Physical Therapy For: Evalulation/Treatment Occupational Therapy For: Evaluation/Treatment Speech Language Pathology For: Evaluation/Treatment Pt Meets Homebound Status: Poor coordination w/ amb., Limited distance walking, Psychological condition, Unable to negotiate home POST DISCHARGE ORDERS: Activity Instructions for Disc: Activity as tolerated Weight Bearing Status after Di: As tolerated DC TO SNF OTHER: CBC, CMP CHECKS AFTER DISCHARGE: Checks after discharge: Check blood press - daily FOLLOW-UP: Follow up with: PCP within 2 weeks of discharge CERTIFICATION STATEMENT: Certification Statement: Certification Statement: Based on the above finding, I certify that this patient is confined to the home and needs intermittent group home care, physical therapy and/or speech therapy, or continues to need occupational therapy.~ This patient is under my care, and I have initiated the establishment of the plan of care.~ This patient will be followed by myself or a community physician who will periodically review the plan of care. Home Meds Active Scripts Amoxicillin/Potassium Clav (AMOX TR-K CLV 875-125 MG TAB) 1 Each Tablet, 1 TAB PO BID for colitis for 5 Days, #10 TAB Prov:SUNNY DOLAN MD 09/25/20 Reported Medications Oxybutynin Chloride (OXYBUTYNIN CHLORIDE) 5 Mg Tablet, 5 MG PO BID for frequent urination, TAB 09/22/20 Paroxetine Hcl (PAROXETINE HCL) 40 Mg Tablet, 40 MG PO DAILY for bipolar, TAB 09/22/20 [place] Carbonate (LITHIUM CARBONATE) 300 Mg Capsule, 300 MG PO QHS for bipolar, CAP 09/22/20 Risperidone (RISPERIDONE) 0.5 Mg Tablet, 0.5 MG PO TID for tremors, TAB 09/22/20 Gabapentin (GABAPENTIN ) 400 Mg Capsule, 400 MG PO QHS for NEUROGENIC PAIN, CAP 09/22/20 Lisinopril (LISINOPRIL) 20 Mg Tablet, 1 TAB PO DAILY for hypertension, #30 TAB 5 Refills 09/22/20 SUNNY DOLAN MD Sep 25, 2020 13:01
--- NOTE | 2020-09-25 14:43 | NUR ---
SS following up with discharge planning. SS reviewed pt chart and discussed with pt RN. Pt is currently on room air. PT/OT recommended home with home healthcare. Pt accepted on services with [facility], ; fax [phone]. Discharge orders received and sent to [facility]. Pt to discharge to home with family today.
[2020-09-25 15:15] VITALS: BP 135/55
[2020-09-25] MEDS ORDERED: oxyCODONE/APAP 5/325 1 TAB TABLET PO ONE (15:30)
--- NOTE | 2020-09-25 16:52 | NUR ---
Discharge Note: CHEN JESUS KEYES Discharge instructions and discharge home medications reviewed with Patient and daughter and a copy given. All questions have been answered and understanding verbalized. The following instructions and handouts were given: Sepsis, hypotension, falls at home Patient discharged to home with home health via daughter and private transportation
--- NOTE | 2020-09-27 16:30 | PDOC3 ---
[facility]-Discharge Summary Date of Admission: Date of Admission: Sep 21, 2020 Date of Discharge: Date of Discharge: Sep 25, 2020 Discharge Diagnosis: Discharge Diagnosis: Sepsis, NOS, severe sepsis on admit, with lactic acidosis Hypokalemia, 3.1 today Elevated troponins, demand 2 parkinsons disease, chronic weakness acute metabolic acidosis - improved KEVON due to vasomotor nephropathy Acute encephalopathy NOS Hospital Course: Hospital Course: By day of discharge, patient had clinically improved and is feeling better overall. No confusion or daze at this time. She did have BM this morning that was nonbloody and somewhat loose. She will go home with PO Augmentin to complete her course. She will follow up reguarly with her GI doctor as scheduled. 09/24/2020 No acute events overnight. Patient feels better at this morning. Saturating 90% on room air. Transition from IV to p.o. Augmentin per ID. Did work with physical therapy which they recommended home health for her. Daughter in the room states that the patient is not yet at her baseline mainly because she is still somewhat confused and dazed. Normally the patient is fairly active at home and walks at home without a walker. Patient does not have any tardive dyskinesia signs at this time or any lip smacking. Patient's chart, labs, images were reviewed and discussed with RN 09/23/20 No acute events. Tmax of 100.4. patient feels better but still has some diarrhea. Pending C Diff PCR. > 50% time spent in patient chart, labs, and image review and discussion with RN and SW 09/22 Chest x-ray clear on broad abx vitals better, was given levaphed yesterday OOB to chair, daughter here today ID following, changed abx, renal fxn 79 yo female who presents to the ED for evaluation of after a fall at home today x 2. Per patient's daught, she has had worsening symptoms of intermittent dizziness and lightheadedness since 09/05/20. She has been evaluated by her PCP, including COVID-19 testing that was reportedly negative, with negative work-up except some anemia. She does admit to some associated constipation and intermittent generalized abdominal pain over tis time. States her last bowel movement was yesterday, and passing flatus today. She began vomiting today with associated tremors prior to her fall, which prompted her daughter to contact EMS. Upon arrival in the ED, she was tachycardic and became hypotensive. WBC 19.8, Lactic Acid 4.6, Troponin 0.077, Cr 1.6. Do to concern for sepsis, she was given broad spectrum antibiotics and sepsis fluid bolus. Her blood pressure did not respond initially to fluids, so she was placed on Levophed infusion. Will admit patient for further medical management. Disposition: Disposition/Orders: D/C to Home, D/C to Home w/ HH Activity: Activity: Resume previous activity Diet: Diet: Regular Medications: Home Meds Active Scripts Amoxicillin/Potassium Clav (AMOX TR-K CLV 875-125 MG TAB) 1 Each Tablet, 1 TAB PO BID for colitis for 5 Days, #10 TAB Prov:SUNNY DOLAN MD 09/25/20 Reported Medications Oxybutynin Chloride (OXYBUTYNIN CHLORIDE) 5 Mg Tablet, 5 MG PO BID for frequent urination, TAB 09/22/20 Paroxetine Hcl (PAROXETINE HCL) 40 Mg Tablet, 40 MG PO DAILY for bipolar, TAB 09/22/20 [place] Carbonate (LITHIUM CARBONATE) 300 Mg Capsule, 300 MG PO QHS for bipolar, CAP 09/22/20 Risperidone (RISPERIDONE) 0.5 Mg Tablet, 0.5 MG PO TID for tremors, TAB 09/22/20 Gabapentin (GABAPENTIN ) 400 Mg Capsule, 400 MG PO QHS for NEUROGENIC PAIN, CAP 09/22/20 Lisinopril (LISINOPRIL) 20 Mg Tablet, 1 TAB PO DAILY for hypertension, #30 TAB 5 Refills 09/22/20 Scheduled Amoxicillin/Potassium Clav (Amox Tr-K Clv 875-125 Mg Tab), 1 TAB PO BID Gabapentin (Gabapentin ), 400 MG PO QHS, (Reported) Lisinopril (Lisinopril), 1 TAB PO DAILY, (Reported) [place] Carbonate ([place] Carbonate), 300 MG PO QHS, (Reported) Oxybutynin Chloride (Oxybutynin Chloride), 5 MG PO BID, (Reported) Paroxetine Hcl (Paroxetine Hcl), 40 MG PO DAILY, (Reported) Risperidone (Risperidone), 0.5 MG PO TID, (Reported) Total Time: Total Time: Total time spent was 50 minutes in preparing scripts, discharge planning with SW and RN, and preparing this discharge summary. Patient seen and examined on day of discharge. Justicifation of Admission Dx: Justifications for Admission: Justification of Admission Dx: Yes (sepsis) SUNNY DOLAN MD Sep 27, 2020 16:30
== END 2020-09-25 17:05 | disposition home health service (06) | DRG 871 ==
LOC: ER 16:33 → 2 NORTH 21:53
PROVIDERS: ADMIT Family Medicine; ATTEND Family Medicine
DX: A41.9 Sepsis, unspecified organism (principal); N17.0 Acute kidney failure with tubular necrosis; G93.40 Encephalopathy, unspecified; J93.9 Pneumothorax, unspecified; E86.1 Hypovolemia; E87.6 Hypokalemia; G20 Parkinson's disease; G24.01 Drug induced subacute dyskinesia; I10 Essential (primary) hypertension; K52.9 Noninfective gastroenteritis and colitis, unspecified; K59.00 Constipation, unspecified; M48.02 Spinal stenosis, cervical region; R65.20 Severe sepsis without septic shock; W18.30XA Fall on same level, unspecified, initial encounter; M48.03 Spinal stenosis, cervicothoracic region; S09.90XA Unspecified injury of head, initial encounter; F31.9 Bipolar disorder, unspecified; Y93.89 Activity, other specified; Y99.8 Other external cause status; Y92.009 Unspecified place in unspecified non-institutional (private) residence as the place of occurrence of the external cause; Z90.710 Acquired absence of both cervix and uterus; Z90.49 Acquired absence of other specified parts of digestive tract
CPT/HCPCS: 36415; 70450; 71045; 72125; 74176; 80048; 80053; 80178; 81001; 83605; 83735; 83880; 84145; 84484; 85007; 85025; 87040; 93005; 96361; 96365; 96366; 96368; 99291; J1644; J2405; J2543; J3370; J3480; J7030; J7040; 97116-GP; 97530-GO; 97535-GO; G0378

== ENCOUNTER 2021-03-06 12:16 | Emergency (ER) | payer MEDICARE ==
[~2021-03-06] VITALS: Ht 154.9 cm; Wt 65.9 kg
[~2021-03-06 12:16] MED LIST: AMOX1TAB11 PO; GABA-689 PO; LISI20TA18 PO; LITH300C PO; OXYB5TAB10 PO; PARO40TA3 PO; RISP0.5T62 PO
[2021-03-06] MEDS ORDERED: IV NORMAL SALINE 1000ML BAG 1,000 ML IV ONE (12:45)
--- NOTE | 2021-03-06 12:52 | PHYS DOC ---
Past Medical History Past Medical History: Hypertension, Other Additional Past Medical Histor: TREMORS (KYRIEALEKSANDAR Dowd RESIDENTIAL SALES MANAGER) Past Surgical History: Cholecystectomy, Hysterectomy (ALEKSANDAR COWART RESIDENTIAL SALES MANAGER) Smoking Status: Never Smoker Alcohol Use: None (KYRIEALEKSANDAR Dowd RESIDENTIAL SALES MANAGER) General Adult EDM: Chief Complaint: ABNORMAL LABS HPI: HPI: Patient is a 80 year old female with a history of hypertension, tarditive dyskinesia, bipolar manic, who presents to the ED today complaining of constipation and elevated white count. Patient's daughter is doing most of the talking, she states patient was seen by the PCP 10 days ago, her white count was "up to the roof". She states they decided to put patient on Augmentin and prednisone for possible Crohn's colitis infection. She states patient has not had a bowel movement for 10 days. Patient denies any abdominal pain, nausea vomiting or diarrhea. She states she tried taking MiraLAX 1 cup yesterday as well as today with no success. (ALEKSANDAR COWART RESIDENTIAL SALES MANAGER) Review of Systems: Review of Systems: Constitutional: Denies fever or chills. [] Eyes: Denies change in visual acuity. [] HENT: Denies nasal congestion or sore throat. [] Respiratory: Denies cough or shortness of breath. [] Cardiovascular: Denies chest pain or edema. [] GI: Reports constipation with elevated white count. Denies nausea, vomiting, bloody stools or diarrhea. [] : Denies dysuria. [] Musculoskeletal: Denies back pain or joint pain. [] Integument: Denies rash. [] Neurologic: Denies headache, focal weakness or sensory changes. [] Psychiatric: Denies depression or anxiety. [] (ALEKSANDAR COWART RESIDENTIAL SALES MANAGER) Heart Score: C/O Chest Pain: N/A Risk Factors: Risk Factors: DM, Current or recent (<one month) smoker, HTN, HLP, family history of CAD, obesity. Risk Scores: Score 0 - 3: 2.5% MACE over next 6 weeks - Discharge Home Score 4 - 6: 20.3% MACE over next 6 weeks - Admit for Clinical Observation Score 7 - 10: 72.7% MACE over next 6 weeks - Early Invasive Strategies (ALEKSANDAR COWART RESIDENTIAL SALES MANAGER) Allergies: Allergies: Allergies Coded Allergies Type Severity Reaction Last Updated Verified No Known Drug Allergies 12/21/19 No (ALEKSANDAR COWART RESIDENTIAL SALES MANAGER) Physical Exam: PE: Constitutional: Well developed, well nourished, no acute distress, non-toxic appearance. [] HENT: Normocephalic, atraumatic, bilateral external ears normal, oropharynx moist, no oral exudates, nose normal. [] Eyes: PERRLA, EOMI, conjunctiva normal, no discharge. [] Neck: Normal range of motion, no tenderness, supple, no stridor. [] Cardiovascular:Heart rate regular rhythm, no murmur [] Lungs & Thorax: Bilateral breath sounds clear to auscultation [] Abdomen: Bowel sounds normal, soft, no tenderness, no masses, no pulsatile masses. [] Skin: Warm, dry, no erythema, no rash. [] Back: No tenderness, no CVA tenderness. [] Extremities: No tenderness, no cyanosis, no clubbing, ROM intact, no edema. [] Neurologic: Alert and oriented X 3, normal motor function, normal sensory function, no focal deficits noted. [] Psychologic: Flat affect (ALEKSANDAR COWART RESIDENTIAL SALES MANAGER) EKG: EKG: [] (ALEKSANDAR COWART RESIDENTIAL SALES MANAGER) Radiology/Procedures: Radiology/Procedures: []PROCEDURE: CT ABD PELV W/ IV CONTRST ONLY CT scan of the abdomen and pelvis with contrast 03/06/2021 CLINICAL HISTORY: Abdominal pain. Constipation.. TECHNIQUE: After the intravenous administration of 60 cc of Omnipaque 600 only, contiguous, 5 mm axial sections were obtained through the abdomen and pelvis. One or more of the following individualized dose reduction techniques were utilized for this study: 1. Automated exposure control. 2. Adjustment of the mA and/or kV according to patient size. 3. Use of iterative reconstruction technique. FINDINGS: Comparison study is dated 09/21/2020. Images through the lung bases demonstrate mild cardiomegaly. Dependent subsegmental atelectasis is seen bilaterally. The liver, spleen, pancreas, and adrenal glands are within normal limits. A 1 cm rounded low-attenuation lesion is seen involving the superior pole of the right kidney. A 1.2 cm rounded low-attenuation lesion is seen projecting laterally from the midpole the left kidney. These likely represent cysts. No further imaging evaluation is recommended. Atherosclerotic calcification abdominal aorta is seen. The abdominal aorta tapers normally. The gallbladder is not visualized consistent with a cholecystectomy. No free fluid or free air is seen within the abdomen. A moderate to large amount stool seen throughout the colon. There is no evidence of bowel obstruction. The inflammatory changes in the wall thickening seen involving the colon on the previous examination have resolved. Images through the pelvis was reviewed urinary bladder distended with urine. No adnexal mass is seen. No free fluid is noted. The osseous structures are unchanged. IMPRESSION: No acute abnormality is seen. Electronically signed by: Rigoberto Martínez MD (03/06/2021 3:11 PM) [id number] DICTATED and SIGNED BY: RIGOBERTO MARTÍNEZ MD DATE: 03/06/21 [id number] (ALEKSANDAR COWART APRN) Course & Med Decision Making: Course & Med Decision Making Pertinent Labs and Imaging studies reviewed. (See chart for details) This is 80-year-old female patient presenting to the ED today complaining of constipation and elevated white count. Patient was seen by the PCP 10 days ago and her white count was elevated. She was started on Augmentin and prednisone. She states she has not had a bowel movement for 10 days Patient's vitals on arrival to the ED is stable, she is afebrile. CBC with a WBC of 14.0 which is lower than what they stated it was previously. Hemoglobin 10.8 with hematocrit of 32.2. CMP with glucose of 143. CT of the abdomen and pelvic was negative for any acute findings, noted for m oderate stool in the colon. CT mentions patient's infection in the colon has improved. Patient was discharged to home. Instructed to finish her antibiotics and follow-up with her PCP. She was given mag citrate and Dulcolax tablets in the ED and I recommended enema tonight. (ALEKSANDAR COWART APRN) Course & Med Decision Making I was attending physician in ER at time of patient visit. PUBLICATION SPECIALIST saw, worked up, and created treatment plan independently despite me being present and available in the department. Patient left ER prior to me reviewing case with PUBLICATION SPECIALIST. Electronically signed, Arlene Alexander DO (ARLENE ALEXANDER DO) Sharonda Disclaimer: Sharonda Disclaimer: This electronic medical record was generated, in whole or in part, using a voice recognition dictation system. (ALEKSANDAR COWART APRN) Departure Departure Impression: Primary Impression: Constipation Qualified Codes: K59.00 - Constipation, unspecified Disposition: HOME / SELF CARE / HOMELESS Condition: STABLE Referrals: JARED LEBLANC MD (PCP) follow up with your doctor in 1 week Patient Instructions: Constipation, Adult, [id number] Additional Instructions: You were evaluated in the emergency room and noted to be constipated. Please increase your dietary fiber intake as well as water intake. Try to be up and walking as much as possible. Take MiraLAX every day. Take a stool softener like leukocyte sodium as well. Anytime you are constipated consider taking milk of magnesia or magnesium citrate. They are all [id number]. Scripts Magnesium Citrate (MAGNESIUM CITRATE) 296 Ml Solution 296 ML PO ONCE, #296 ML Prov: ALEKSANDAR COWART APRN 03/06/21 Docusate Sodium (DOCUSATE SODIUM) 100 Mg Capsule 1 CAP PO DAILY for constipation, #30 CAP 0 Refills Prov: ALEKSANDAR COWART APRN 03/06/21 Polyethylene Glycol 3350 (MIRALAX) 119 Gm Powder 17 GM PO DAILY for constipation, #527 GM 0 Refills dissolve in water Prov: ALEKSANDAR COWART APRN 03/06/21 ALEKSANDAR COWART APRN Mar 06, 2021 12:52 ARLENE ALEXANDER DO Mar 30, 2021 11:05
[2021-03-06 12:56] LABS: BASO % 0 % (0-3); EOS % 0 % (0-3); HEMATOCRIT 32.2 % (36.0-47.0); HEMOGLOBIN 10.8 g/dL (12.0-15.5); LYMPH # 1.1 x10^3/uL (1.0-4.8); LYMPH % 8 % (24-48); MEAN CORPUSCULAR HEMOGLOBIN 27 pg (25-35); MEAN CORPUSCULAR HGB CONC 33 g/dL (31-37); MEAN CORPUSCULAR VOLUME 81 fL (79-100); MONO # 0.2 x10^3/uL (0.0-1.1); MONO % 2 % (0-9); NEUT % 90 % (31-73); PLATELET COUNT 552 x10^3/uL (140-400); RED BLOOD COUNT 3.97 x10^6/uL (3.50-5.40); RED CELL DISTRIBUTION WIDTH 14.7 % (11.5-14.5); WHITE BLOOD COUNT 14.4 x10^3/uL (4.0-11.0)
[2021-03-06 13:10] LABS: CALCIUM 8.9 mg/dL (8.5-10.1); GFR 53.5; POTASSIUM 4.6 mmol/L (3.5-5.1)
[2021-03-06 13:23] LABS: ALBUMIN 3.6 g/dL (3.4-5.0); TOTAL BILIRUBIN 0.3 mg/dL (0.2-1.0); TOTAL PROTEIN 7.2 g/dL (6.4-8.2)
[2021-03-06 13:28] LABS: % LYMPHS 11 % (24-48); % MONOS 2 % (0-10); % SEGS 87 % (35-66)
[2021-03-06 13:29] LABS: PLT ESTIMATE INCREASED (ADEQUATE)
[2021-03-06] MEDS ORDERED: IOHEXOL 300 MG/ML 100ML VIAL. IV ONE (13:30)
[2021-03-06] MEDS ORDERED: CONTRAST GIVEN. MC PRN (13:30)
--- NOTE | 2021-03-06 15:13 | RAD ---
CT scan of the abdomen and pelvis with contrast 03/06/2021 CLINICAL HISTORY: Abdominal pain. Constipation.. TECHNIQUE: After the intravenous administration of 60 cc of Omnipaque 600 only, contiguous, 5 mm axia l sections were obtained through the abdomen and pelvis. One or more of the following individualized dose reduction techniques were utilized for this study: 1. Automated exposure control. 2. Adjustment of the mA and/or kV according to patient size. 3. Use of iterative reconstruction technique. FINDINGS: Comparison study is dated 09/21/2020. Images through the lung bases demonstrate mild cardiomegaly. Dependent subsegmental atelectasis is se en bilaterally. The liver, spleen, pancreas, and adrenal glands are within normal limits. A 1 cm rounded low-attenuat ion lesion is seen involving the superior pole of the right kidney. A 1.2 cm rounded low-attenuation lesion is seen projecting laterally from the midpole the left kidney. These likely represent cysts. N o further imaging evaluation is recommended. Atherosclerotic calcification abdominal aorta is seen. The abdominal aorta tapers normally. The gallb ladder is not visualized consistent with a cholecystectomy. No free fluid or free air is seen within the abdomen. A moderate to large amount stool seen throughout the colon. There is no evidence of mar l obstruction. The inflammatory changes in the wall thickening seen involving the colon on the previo us examination have resolved. Images through the pelvis was reviewed urinary bladder distended with urine. No adnexal mass is seen. No free fluid is noted. The osseous structures are unchanged. IMPRESSION: No acute abnormality is seen. Electronically signed by: Rigoberto Martínez MD (03/06/2021 3:11 PM) [id number]
[2021-03-06] MEDS ORDERED: BISACODYL 5 MG TABLET.DR. PO STA (15:28)
[2021-03-06] MEDS ORDERED: MAGNESIUM CITRATE 296 ML SOLUTION. PO ONE (15:30)
[2021-03-06] MEDS ORDERED: DOCU100C28 PO (16:13)
[2021-03-06] MEDS ORDERED: MAGN296S68 PO (16:13)
[2021-03-06] MEDS ORDERED: POLY119P4 PO (16:13)
[2021-03-06 16:23] VITALS: BP 164/67
== END 2021-03-06 16:38 | disposition home or self-care (01) ==
LOC: ER 12:16
DX: K59.00 Constipation, unspecified (principal); I10 Essential (primary) hypertension; Z90.49 Acquired absence of other specified parts of digestive tract
CPT/HCPCS: 36415; 74177; 80053; 83605; 83690; 84145; 85007; 85025; 87040; 96360; 96361; 99285; J7030

== ENCOUNTER → 2021-03-07 | Outpatient (CLI) | payer MEDICARE ==
[2021-03-06 16:23] VITALS: BP 164/67
[~2021-03-07] MED LIST changes: +DOCU100C28 PO; +MAGN296S68 PO; +POLY119P4 PO
--- NOTE | 2021-03-07 14:39 | KCIC ---
Bilateral digital screening mammograms with 3-D tomosynthesis: Reason for examination: Routine screening. Comparison is made to previous studies dated back to 08/06/2010. Bilateral mammograms in CC and oblique projections were obtained with 2-D imaging and 3-D tomosynthes is imaging on a Siemens Inspiration unit and reviewed on the workstation. Interpretation was made wit h the benefit of CAD. The skin and nipples show no abnormalities. No abnormal axillary lymph nodes are seen. The breast par enchyma is heterogeneously dense. (Breast density: Category C.) There appears be a new nodule posteri or laterally in the right breast measuring 6 mm in greatest dimension located at the 9:00 and 12:00 B positions approximately 9 and 11 cm posterior to the nipple. There also appear to be new nodules pre sent at the 3:00 B position of the left breast measuring 3 cm and 1.2 cm in size which likely represe nt cysts. There continues to be a 1.5 cm nodule anteriorly at the 1:00 A position which has decreased in size. There appears to be a circumscribed 6.5 mm nodule located approximately 7 cm from the nippl e at the 9:30 B position of the left breast consistent with a small cyst. There is also a small 1.2 c m nodule at the 12:00 position 5.7 cm from the nipple in the left breast which may shows some adjacen t architectural distortion. Further evaluation with ultrasound is recommended. There are no suspiciou s calcifications identified. There are however a few scattered benign calcifications present. IMPRESSION: Multiple small circumscribed lesions bilaterally consistent with cysts. 1.2 cm nodule in the 12:00 B position of the left breast which may shows some adjacent architectural distortion. Further evaluatio n with bilateral breast ultrasound is recommended. Your patient's mammogram demonstrates that she has dense breast tissue (breast density category C or D), which could hide abnormalities, and if she has other risk factors for breast cancer that have bee n identified, she might benefit from supplemental screening tests that may be suggested by you as her ordering physician. Dense breast tissue, in and of itself, is a relatively common condition. Therefo re, this information is not provided to cause undue concern, but rather to raise your awareness and t o promote discussion with your patient regarding the presence of other risk factors, in addition to d ense breast tissue. Your patient's mammography results will be sent to her. BI-RAD Category 0: Incomplete. Needs additional imaging evaluation. "Our facility is accredited by the [employer] Mammography Program." This patient's information has been entered into a reminder system for the patient to be notified wit h the results of her examination and a target date for the next mammogram. Electronically signed by: Tammi Faustin MD (03/07/2021 2:36 PM) [id number]
== END ==
LOC: KCIC MAMMO 12:36
PROVIDERS: ATTEND Internal Medicine
DX: Z12.31 Encounter for screening mammogram for malignant neoplasm of breast (principal)
CPT/HCPCS: 77063; 77067

== ENCOUNTER → 2021-03-19 | Outpatient (CLI) | payer MEDICARE ==
[2021-03-06 16:23] VITALS: BP 164/67
--- NOTE | 2021-03-19 14:47 | KCIC ---
Bilateral breast ultrasound, complete including the axilla. INDICATION: Bilateral breast masses. TECHNIQUE: All 4 quadrants, the retroareolar regions, and both axilla were imaged. Findings Right: In the 9:00 position the right breast, 8 cm from the nipple, there is a small complicated cyst s which measures 7 mm in maximum dimension. There is a 8 mm cyst in the 12:00 position, 4 cm from the nipple. No right axillary adenopathy is seen. Left: There is a solid mass in the 12:00 position of the left breast, 5 cm from the nipple which candelario ures 1.1 cm antiradial by 1.0 cm radial by 0.9 cm AP. It shows some blood flow and has no posterior a coustic shadowing. The there is a solid-appearing oval mass in the 9:30 position, 5 cm from the nipple which measures 5 mm interradial by 4 mm radially by 5 mm AP. The mass is slightly indistinct margins and have some pos terior acoustic shadowing. It has some internal blood flow.. There are multiple cysts in the left tyree ast in the 1:00 position 4 cm from the nipple there is a 1.4 cm cyst in the 2:30 position, 10 cm from the nipple there are multiple cysts with the largest measuring 3.1 cm. No left axillary adenopathy i s seen. IMPRESSION: There are 2 solid masses in the left breast at 12:00, 5 cm from nipple (1.1 cm) and at 9: 30, 5 cm from the nipple (0.5 cm). These may represent fibroadenomas, but they were not visualized o n prior ultrasound from 2016. 6 month follow-up of complicated right breast cyst is recommended. ASSESSMENT: BI-RADS 4. Suspicious for possible malignancy. Tissue diagnosis is recommended. RECOMMENDATION: Ultrasound-guided guided left breast biopsy x 2 Results were given to the patient by the technologist at the time of the exam. Results were called by myself to Dr. Zulma Lainez on 03/19/2021. Electronically signed by: Gypsy Liz MD (03/19/2021 2:45 PM) [id number]
== END ==
LOC: KCIC US 13:22
PROVIDERS: ATTEND Internal Medicine
DX: N63.25 Unspecified lump in the left breast, overlapping quadrants (principal)
CPT/HCPCS: 76641